=== PATIENT | female | born 1995 | race Asian ===

== ENCOUNTER 2020-07-08 13:53 | Inpatient (IN) ==
[2020-07-08] MEDS ORDERED: SODIUM CHLORIDE 0.9% 1000ML 1,000 ML IV STA (16:38)
[2020-07-08] MEDS ORDERED: ONDANSETRON INJ 2 MG/ML 2 ML VIAL IV STA (16:38)
[2020-07-08] MEDS ORDERED: MoRPHine SULFATE 4 MG/ML 1 ML CARP\\VIAL IV STA (16:38)
--- NOTE | 2020-07-08 16:45 | Emergency Department Note ---
History of Present Illness General Chief complaint: Abdominal Pain Stated complaint: ABD PAIN, VOMITING, BACK PAIN Time Seen by Provider: 07/08/20 16:20 History of Present Illness Maximum Pain Intensity: 5 25-year-old female who presents to emergency department with complaint of upper abdominal pain, nausea, vomiting and central back pain. The patient reports that she developed nausea, vomiting and loss of appetite last evening. When she woke up this morning, the pain was much worse. She reports that the pain is pretty constant with occasional sharp jabs of pain. She reports that the pain is worsened with deep breathing. She denies any pain radiating into the lower abdomen. Last menstruation was 1 month ago. She denies risk for . She has not noticed any increased urinary frequency, urgency or dysuria. She denies recent constipation or diarrhea. The patient denies any alleviating factors for the pain, and has taken ibuprofen without relief. She denies any significant caffeine, alcohol or NSAIDs use. She currently rates her discomfort a 5 out of 10. Home Medications Medication Instructions Recorded Confirmed Type No Known Home Medications 07/08/20 07/08/20 History Allergies Allergy/AdvReac Type Severity Reaction Status Date / Time No Known Allergies Allergy Unverified 07/08/20 16:31 Past Med/Surg History Medical History No pertinent past medical history Surgical History No pertinent past surgical history Social History Smoking Status: Never smoker Preferred Language: [place] marital status: Single current occupational status: student Feels Safe at Home: Yes Review of Systems 10 system review was performed and was negative except for pertinent positives and negatives as indicated in history of present illness Physical Exam Vital Signs Vital Signs - 24 hr 07/08/20 13:54 07/08/20 16:51 07/08/20 17:00 Temperature 35.7 C L Temperature Source Temporal Artery Scan Pulse Rate 87 60 Pulse Rate from SpO2 Sensor 61 Respiratory Rate 18 12 Blood Pressure 126/73 123/76 Blood Pressure Mean 90 91 Pulse Oximetry 97 99 Oxygen Delivery Method Room Air Room Air Sepsis Recent Fever Within 48 Hours No Sepsis New/Unexplained Change in Mental Status N/A Sepsis Action Taken by Nursing No Action Required 07/08/20 17:13 07/08/20 17:30 07/08/20 18:00 Temperature Temperature Source Pulse Rate 55 L 60 64 Pulse Rate from SpO2 Sensor 56 L 63 64 Respiratory Rate 14 14 14 Blood Pressure 126/80 120/81 Blood Pressure Mean 95 94 Pulse Oximetry 98 99 98 Oxygen Delivery Method Sepsis Recent Fever Within 48 Hours Sepsis New/Unexplained Change in Mental Status Sepsis Action Taken by Nursing 07/08/20 18:30 07/08/20 19:00 07/08/20 19:30 Temperature Temperature Source Pulse Rate 60 68 Pulse Rate from SpO2 Sensor 61 68 67 Respiratory Rate 16 14 Blood Pressure 121/77 138/82 114/78 Blood Pressure Mean 91 100 90 Pulse Oximetry 98 98 99 Oxygen Delivery Method Room Air Sepsis Recent Fever Within 48 Hours Sepsis New/Unexplained Change in Mental Status Sepsis Action Taken by Nursing 07/08/20 19:43 07/08/20 20:00 07/08/20 20:30 Temperature Temperature Source Pulse Rate 68 66 Pulse Rate from SpO2 Sensor 75 66 64 Respiratory Rate 14 14 Blood Pressure 135/95 138/95 133/87 Blood Pressure Mean 108 109 102 Pulse Oximetry 99 98 98 Oxygen Delivery Method Room Air Room Air Room Air Sepsis Recent Fever Within 48 Hours Sepsis New/Unexplained Change in Mental Status Sepsis Action Taken by Nursing CONSTITUTIONAL: Healthy and well nourished. Patient appears in mild to moderate discomfort. HEENT: Normocephalic, atraumatic. No scleral icterus or conjunctival injection/pallor. Ears and nares are clear. No tonsillar hypertrophy, exudates or postnasal drip. NECK: Full active range of motion without discomfort. LYMPHATICS: No cervical chain adenopathy. RESPIRATORY: Clear to auscultation bilaterally with no wheezing, crackles, rhonchi or stridor. The breathing worsens the patient's discomfort. CARDIOVASCULAR: Regular rate and rhythm with no murmurs, rubs or gallops. GASTROINTESTINAL: Bowel sounds present in all quadrants. Patient has generalized upper abdominal tenderness to palpation without rigidity, guarding or rebound. Negative CVA tenderness. Negative Adams sign. MUSCULOSKELETAL: Full range of motion of all joints without discomfort. INTEGUMENTARY: No rash or other significant dermatologic conditions noted. HEMATOLOGIC: No ecchymosis or petechiae. PSYCHIATRIC: Flat affect. NEUROLOGIC: No focal neurologic deficits noted. Course Course Patient history and physical exam were performed. Nurses notes were reviewed. Vital signs were reviewed and were normal. I did review prior medical records, showing that the patient has been seen here multiple times in the past for middl e thoracic pain. Upon further questioning, the patient reports that she does occasionally see a chiropractor and physical therapist with relief of back symptoms. She reports that this pain feels different and that it involves the abdomen. IV access was established, and labs were drawn. The patient was hydrated with a liter of normal saline, and administered IV morphine and Zofran for pain and nausea. An ECG was performed and was normal. The patient was placed on monitoring tech while in the emergency department. A portable chest x-ray was performed and was normal. Review of labs show significantly elevated LFTs, alkaline phosphatase, total and direct bilirubin. Urinalysis also is suggestive of infection. Patient also has an elevated D-dimer. CBC is otherwise unremarkable. CT with IV contrast of the abdomen and pelvis, as well as a chest CT angiography was performed, to show no evidence for pulmonary emboli. An acute cholecystitis is noted without any other acute intra-abdominal etiologies. Findings were discussed with Dr. Dumont, ED attending physician, who recommended surgical consultation. The case was then discussed with Pedro Silva PA-C with Dr. Jimenez, general surgeon reimbursement liaison. Mr. Silva recommended hospitalist admission for GI consultation and probable MRCP studies. The case was then further discussed with Leslye Blanchard MD, [facility] Hospitalist. Please see hospitalist, gastroenterology and surgery service dictations for further treatment and final disposition. Administered Medications Discontinued Medications Sodium Chloride (Nss 1000ml) 1,000 mls @ 999 mls/hr IV .Q1H1M STA Stop: 07/08/20 17:38 Last Infusion: 07/08/20 17:57 Dose: 0 mls/hr Documented by: [id number] Admin: 07/08/20 16:45 Dose: 999 mls/hr Documented by: [id number] Famotidine (Pepcid 20mg Iv Push) 20 mg in 5 mls @ 2.5 mls/min IV NOW STA Stop: 07/08/20 16:49 Last Admin: 07/08/20 18:00 Dose: 2.5 mls/min Documented by: [id number] Ampicillin Sodium/Sulbactam Sodium 3,000 mg/ Sodium Chloride 108 mls @ 200 mls/hr IV NOW STA; Protocol Stop: 07/08/20 21:19 Last Admin: 07/08/20 21:13 Dose: 200 mls/hr Documented by: [id number] Ioversol (Optiray 320 125ml) 119 ml IV ONCE ONE Stop: 07/08/20 19:14 Last Admin: 07/08/20 19:14 Dose: 119 ml Documented by: [id number] Morphine Sulfate (Morphine Sulfate 4 Mg/Ml 1 Ml Carp\Vial) 4 mg IV NOW STA Stop: 07/08/20 16:39 Last Admin: 07/08/20 16:45 Dose: 4 mg Documented by: [id number] Morphine Sulfate (Morphine Sulfate 4 Mg/Ml 1 Ml Carp\Vial) 4 mg IV Q30M PRN PRN Reason: Pain Stop: 07/22/20 20:45 Last Admin: 07/08/20 20:52 Dose: 4 mg Documented by: [id number] Ondansetron HCl (Ondansetron Inj 2 Mg/Ml 2 Ml Vial) 4 mg IV NOW STA Stop: 07/08/20 16:39 Last Admin: 07/08/20 16:45 Dose: 4 mg Documented by: [id number] Medical Decision Making Medical Records Attestation: I reviewed the patient's medical records. Home Medications Current Medication List: was personally reviewed by me Laboratory Data Attestation: I reviewed the patient's lab results. Result diagrams: 07/08/20 17:37 07/08/20 17:37 Lab Results 07/08/20 07/08/20 07/08/20 Range/Units 16:25 16:25 17:37 WBC 7.92 (4.8-10.8) K/uL RBC 5.18 (4.2-5.4) M/uL Hgb 14.1 (12.0-16.0) g/dL Hct 41.5 (37-47) % MCV 80.1 (80-100) fL MCH 27.2 (25-34) pg MCHC 34.0 (32-36) g/dL RDW Std Deviation 37.9 (36.4-46.3) fL RDW Coeff of Joycelyn 12.9 (11.5-14.5) % Plt Count 319 (130-400) K/uL MPV 9.9 (7.4-10.4) fL Immature Gran % (Auto) 0.1 % Neut % (Auto) 86.0 % Lymph % (Auto) 9.3 % [place] % (Auto) 4.5 % Eos % (Auto) 0.0 % Baso % (Auto) 0.1 % Neut # (Auto) 6.80 H (1.4-6.5) K/uL Lymph # (Auto) 0.74 L (1.2-3.4) K/uL [place] # (Auto) 0.36 (0.11-0.59) K/uL Eos # (Auto) 0.00 (0-0.5) K/uL Baso # (Auto) 0.01 (0-0.2) K/uL Immature Gran # (Auto) 0.01 (0.00-0.02) K/uL PT (9.0-12.0) Seconds INR (0.9-1.1) D-Dimer (0-500) ug/L FEU Sodium (136-145) mmol/L Potassium (3.5-5.1) mmol/L Chloride (98-107) mmol/L Carbon Dioxide (21-32) mmol/L Anion Gap (3-11) BUN (7-18) mg/dl Creatinine (0.6-1.2) mg/dl Est Cr Clr Drug Dosing ml/min Est GFR ( Amer) Est GFR (Non-Af Amer) BUN/Creatinine Ratio (10-20) Glucose (70-99) mg/dl Calcium (8.5-10.1) mg/dl Total Bilirubin (0.2-1) mg/dl Direct Bilirubin (0-0.2) mg/dl AST (15-37) U/L ALT (12-78) U/L Alkaline Phosphatase (45-117) U/L Troponin I (0-0.045) ng/ml Total Protein (6.4-8.2) gm/dl Albumin (3.4-5.0) gm/dl Globulin (2.5-4.0) gm/dl Albumin/Globulin Ratio (0.9-2) Lipase (73-393) U/L Urine Color Dark Yellow Urine Appearance Cloudy A (Clear) Urine pH 7.0 (4.5-7.5) Ur Specific [place] 1.026 (1.000-1.030) Urine Protein 1+ H (Negative) Urine Glucose (UA) Negative (Negative) Urine Ketones 4+ H (Negative) Urine Blood Negative (Negative) Urine Nitrite Positive A (Negative) Urine Bilirubin 2+ H (Negative) Urine Urobilinogen Negative (Negative) Ur Leukocyte Esterase 1+ H (Negative) Urine WBC (Auto) 1-5 (0-5) /hpf Urine RBC (Auto) 5-10 H (0-4) /hpf U Hyaline Cast (Auto) 1-5 (0-5) /lpf U Epithel Cells (Auto) >30 H (0-5) /lpf Urine Bacteria (Auto) Negative (Negative) Urine Mucus Present A (None Prsent) Urine Yeast Not Reportable POC Ur Test NEG (NEG) COVID-19 Eval Order SARS-CoV-2 (PCR) (Negative) Monoscreen (Negative) Influenza Type A (PCR) (Neg) Influenza Type B (PCR) (Neg) RSV (RT-PCR) (Neg) 07/08/20 07/08/20 07/08/20 Range/Units 17:37 17:37 17:48 WBC (4.8-10.8) K/uL RBC (4.2-5.4) M/uL Hgb (12.0-16.0) g/dL Hct (37-47) % MCV (80-100) fL MCH (25-34) pg MCHC (32-36) g/dL RDW Std Deviation (36.4-46.3) fL RDW Coeff of Joycelyn (11.5-14.5) % Plt Count (130-400) K/uL MPV (7.4-10.4) fL Immature Gran % (Auto) % Neut % (Auto) % Lymph % (Auto) % [place] % (Auto) % Eos % (Auto) % Baso % (Auto) % Neut # (Auto) (1.4-6.5) K/uL Lymph # (Auto) (1.2-3.4) K/uL [place] # (Auto) (0.11-0.59) K/uL Eos # (Auto) (0-0.5) K/uL Baso # (Auto) (0-0.2) K/uL Immature Gran # (Auto) (0.00-0.02) K/uL PT 10.5 (9.0-12.0) Seconds INR 1.0 (0.9-1.1) D-Dimer 1740 H* (0-500) ug/L FEU Sodium 137 (136-145) mmol/L Potassium 3.9 (3.5-5.1) mmol/L Chloride 106 (98-107) mmol/L Carbon Dioxide 23 (21-32) mmol/L Anion Gap 8.0 (3-11) BUN 7 (7-18) mg/dl Creatinine 0.69 (0.6-1.2) mg/dl Est Cr Clr Drug Dosing 118.3 ml/min Est GFR ( Amer) 140.2 Est GFR (Non-Af Amer) 121.0 BUN/Creatinine Ratio 9.4 L (10-20) Glucose 114 H (70-99) mg/dl Calcium 8.8 (8.5-10.1) mg/dl Total Bilirubin 3.7 H (0.2-1) mg/dl Direct Bilirubin 2.8 H (0-0.2) mg/dl AST 1158 H (15-37) U/L ALT 1128 H (12-78) U/L Alkaline Phosphatase 211 H (45-117) U/L Troponin I < 0.015 (0-0.045) ng/ml Total Protein 7.9 (6.4-8.2) gm/dl Albumin 4.0 (3.4-5.0) gm/dl Globulin 3.9 (2.5-4.0) gm/dl Albumin/Globulin Ratio 1.0 (0.9-2) Lipase 138 (73-393) U/L Urine Color Urine Appearance (Clear) Urine pH (4.5-7.5) Ur Specific [place] (1.000-1.030) Urine Protein (Negative) Urine Glucose (UA) (Negative) Urine Ketones (Negative) Urine Blood (Negative) Urine Nitrite (Negative) Urine Bilirubin (Negative) Urine Urobilinogen (Negative) Ur Leukocyte Esterase (Negative) Urine WBC (Auto) (0-5) /hpf Urine RBC (Auto) (0-4) /hpf U Hyaline Cast (Auto) (0-5) /lpf U Epithel Cells (Auto) (0-5) /lpf Urine Bacteria (Auto) (Negative) Urine Mucus (None Prsent) Urine Yeast POC Ur Test (NEG) COVID-19 Eval Order SARS-CoV-2 (PCR) (Negative) Monoscreen Negative (Negative) Influenza Type A (PCR) (Neg) Influenza Type B (PCR) (Neg) RSV (RT-PCR) (Neg) 07/08/20 07/08/20 Range/Units 19:45 19:45 WBC (4.8-10.8) K/uL RBC (4.2-5.4) M/uL Hgb (12.0-16.0) g/dL Hct (37-47) % MCV (80-100) fL MCH (25-34) pg MCHC (32-36) g/dL RDW Std Deviation (36.4-46.3) fL RDW Coeff of Joycelyn (11.5-14.5) % Plt Count (130-400) K/uL MPV (7.4-10.4) fL Immature Gran % (Auto) % Neut % (Auto) % Lymph % (Auto) % [place] % (Auto) % Eos % (Auto) % Baso % (Auto) % Neut # (Auto) (1.4-6.5) K/uL Lymph # (Auto) (1.2-3.4) K/uL [place] # (Auto) (0.11-0.59) K/uL Eos # (Auto) (0-0.5) K/uL Baso # (Auto) (0-0.2) K/uL Immature Gran # (Auto) (0.00-0.02) K/uL PT (9.0-12.0) Seconds INR (0.9-1.1) D-Dimer (0-500) ug/L FEU Sodium (136-145) mmol/L Potassium (3.5-5.1) mmol/L Chloride (98-107) mmol/L Carbon Dioxide (21-32) mmol/L Anion Gap (3-11) BUN (7-18) mg/dl Creatinine (0.6-1.2) mg/dl Est Cr Clr Drug Dosing ml/min Est GFR ( Amer) Est GFR (Non-Af Amer) BUN/Creatinine Ratio (10-20) Glucose (70-99) mg/dl Calcium (8.5-10.1) mg/dl Total Bilirubin (0.2-1) mg/dl Direct Bilirubin (0-0.2) mg/dl AST (15-37) U/L ALT (12-78) U/L Alkaline Phosphatase (45-117) U/L Troponin I (0-0.045) ng/ml Total Protein (6.4-8.2) gm/dl Albumin (3.4-5.0) gm/dl Globulin (2.5-4.0) gm/dl Albumin/Globulin Ratio (0.9-2) Lipase (73-393) U/L Urine Color Urine Appearance (Clear) Urine pH (4.5-7.5) Ur Specific [place] (1.000-1.030) Urine Protein (Negative) Urine Glucose (UA) (Negative) Urine Ketones (Negative) Urine Blood (Negative) Urine Nitrite (Negative) Urine Bilirubin (Negative) Urine Urobilinogen (Negative) Ur Leukocyte Esterase (Negative) Urine WBC (Auto) (0-5) /hpf Urine RBC (Auto) (0-4) /hpf U Hyaline Cast (Auto) (0-5) /lpf U Epithel Cells (Auto) (0-5) /lpf Urine Bacteria (Auto) (Negative) Urine Mucus (None Prsent) Urine Yeast POC Ur Test (NEG) COVID-19 Eval Order CovFluRsv at [facility] SARS-CoV-2 (PCR) NEGATIVE (Negative) Monoscreen (Negative) Influenza Type A (PCR) Negative (Neg) Influenza Type B (PCR) Negative (Neg) RSV (RT-PCR) Negative (Neg) Imaging Data Attestation: I personally reviewed and interpreted this imaging study as follows: My Impression: My interpretation of portable chest x-ray does not show any consolidations, pneumothorax, cardiac prominence or other acute findings. My interpretation of a CT with IV contrast of the abdomen and pelvis shows evidence for acute cholecystitis. My interpretation of chest CT angiography does not show obvious evidence for pulmonary emboli. Radiologist reports were reviewed. Radiologist's Impression: SINGLE VIEW CHEST CLINICAL HISTORY: Epigastric abdominal pain. FINDINGS: An AP, portable, upright chest radiograph is obtained. No prior studies are available for comparison at the time of dictation. The cardiomediastinal silhouette is unremarkable. The lungs and pleural spaces are clear. No pneumothorax is seen. The bony thorax is grossly intact. IMPRESSION: No active disease in the chest. CT ANGIOGRAM OF THE CHEST; CT SCAN OF THE ABDOMEN AND PELVIS WITH IV CONTRAST CLINICAL HISTORY: Atypical chest pain. Generalized abdominal pain. Elevated d- dimer. COMPARISON STUDY: Chest x-ray dated 07/08/2020. Pelvic ultrasound dated 10/23/2019. Thoracic spine CT dated 01/28/2020. TECHNIQUE: Following the IV administration of 119 of Optiray 320, CT angiogram of the chest is performed from the upper abdomen to the thoracic inlet utilizing the pulmonary embolus protocol. Images are reviewed in the axial, sagittal, coronal planes. 3-D MIPS images are created and assessed. Subsequently, CT scan of the abdomen and pelvis was performed from the lung bases to the proximal femora. Images are reviewed in the axial, sagittal, and coronal planes. IV contrast was administered without complication. A dose lowering technique was utilized adhering to the principles of ALARA. CT DOSE: 767.73 mGy.cm FINDINGS: CHEST: Thyroid: Imaged portions of the thyroid gland are normal in size and attenuation. Thoracic aorta: The thoracic aorta is normal in caliber and demonstrates standard 3-vessel arch anatomy. No dissection is seen. Pulmonary vasculature: The pulmonary trunk is normal in caliber. There are no filling defects identified in the main, lobar, or segmental pulmonary arteries to indicate pulmonary embolus. Heart: The heart is normal in size and configuration, and without pericardial effusion. Lungs and pleural spaces: There is no airspace consolidation typical for pn [place]. Trace pleural effusions are noted. The trachea and central airways are clear. Mediastinum: There is no mediastinal lymphadenopathy. Nisha: Clear. Axillae: There is no axillary lymphadenopathy. Bony thorax: No lytic or blastic lesions are identified. ABDOMEN AND PELVIS: Liver: The contrast-enhanced liver is normal in size, contour, and attenuation. There is mild intrahepatic biliary ductal dilatation. The hepatic veins and portal veins are patent. Gallbladder: The gallbladder is distended. Small calcified gallstones are noted. The gallbladder wall is thickened and there is pericholecystic inflammation. Spleen: Normal in size and attenuation. Pancreas: Unremarkable. Adrenal glands: Unremarkable. Kidneys: The contrast enhanced kidneys are normal in size and without hydrone phrosis. The kidneys enhance and excrete symmetrically. Abdominal vasculature: The abdominal aorta is normal in course and caliber. Bowel: The small bowel and colon are normal in course and caliber. The appendix is well-visualized and normal. Peritoneum: There is no intraperitoneal free air or abdominal ascites. There is a small fat-containing umbilical hernia. Lymphadenopathy: None. Pelvic viscera: The bladder, uterus, and adnexa are normal as visualized noting bilateral ovarian follicles. Skeletal structures: No lytic or blastic lesions are seen. IMPRESSION: 1. There is no evidence of pulmonary embolus in the main, lobar, or segmental pulmonary arteries. 2. There is no airspace consolidation typical for pneumonia. 3. Cholelithiasis with evidence of acute cholecystitis. 4. Trace pleural effusions. 5. There is mild intrahepatic biliary ductal dilatation. 6. Additional findings as above. CT ANGIOGRAM OF THE CHEST; CT SCAN OF THE ABDOMEN AND PELVIS WITH IV CONTRAST CLINICAL HISTORY: Atypical chest pain. Generalized abdominal pain. Elevated d- dimer. COMPARISON STUDY: Chest x-ray dated 07/08/2020. Pelvic ultrasound dated 10/23/2019. Thoracic spine CT dated 01/28/2020. TECHNIQUE: Following the IV administration of 119 of Optiray 320, CT angiogram of the chest is performed from the upper abdomen to the thoracic inlet utilizing the pulmonary embolus protocol. Images are reviewed in the axial, sagittal, coronal planes. 3-D MIPS images are created and assessed. Subsequently, CT scan of the abdomen and pelvis was performed from the lung bases to the proximal femora. Images are reviewed in the axial, sagittal, and coronal planes. IV contrast was administered without complication. A dose lowering technique was utilized adhering to the principles of ALARA. CT DOSE: 767.73 mGy.cm FINDINGS: CHEST: Thyroid: Imaged portions of the thyroid gland are normal in size and attenuation. Thoracic aorta: The thoracic aorta is normal in caliber and demonstrates standard 3-vessel arch anatomy. No dissection is seen. Pulmonary vasculature: The pulmonary trunk is normal in caliber. There are no filling defects identified in the main, lobar, or segmental pulmonary arteries to indicate pulmonary embolus. Heart: The heart is normal in size and configuration, and without pericardial effusion. Lungs and pleural spaces: There is no airspace consolidation typical for pneumonia. Trace pleural effusions are noted. The trachea and central airways are clear. Mediastinum: There is no mediastinal lymphadenopathy. Nisha: Clear. Axillae: There is no axillary lymphadenopathy. Bony thorax: No lytic or blastic lesions are identified. ABDOMEN AND PELVIS: Liver: The contrast-enhanced liver is normal in size, contour, and attenuation. There is mild intrahepatic biliary ductal dilatation. The hepatic veins and portal veins are patent. Gallbladder: The gallbladder is distended. Small calcified gallstones are noted. The gallbladder wall is thickened and there is pericholecystic inflammation. Spleen: Normal in size and attenuation. Pancreas: Unremarkable. Adrenal glands: Unremarkable. Kidneys: The contrast enhanced kidneys are normal in size and without hydronephrosis. The kidneys enhance and excrete symmetrically. Abdominal vasculature: The abdominal aorta is normal in course and caliber. Bowel: The small bowel and colon are normal in course and caliber. The appendix is well-visualized and normal. Peritoneum: There is no intraperitoneal free air or abdominal ascites. There is a small fat-containing umbilical hernia. Lymphadenopathy: None. Pelvic viscera: The bladder, uterus, and adnexa are normal as visualized noting bilateral ovarian follicles. Skeletal structures: No lytic or blastic lesions are seen. IMPRESSION: 1. There is no evidence of pulmonary embolus in the main, lobar, or segmental pulmonary arteries. 2. There is no airspace consolidation typical for pneumonia. 3. Cholelithiasis with evidence of acute cholecystitis. 4. Trace pleural effusions. 5. There is mild intrahepatic biliary ductal dilatation. 6. Additional findings as above. ECG Data Indication: + abdominal pain, + nausea and + vomiting Rhythm: + sinus with SA ECG Intervals/blocks: + Normal QRS, + Normal QT, + Normal AK and + Normal QT-c ECG [place]: + Normal ECG ST segments: + Normal ST segments Comparison ECG Date: no prior available Blood Pressure Blood Pressure Findings: Normal blood pressure MDM Narrative Cardiac monitoring: An order was placed for continuous cardiac monitoring. The monitor shows a rate of 61 bpm with a sinus rhythm with sinus arrhythmia. security monitor history was reviewed throughout the evaluation, and no dysrhythmias were noted. Patient presents to the emergency department with complaint of upper abdominal pain, nausea and vomiting. It is also noted that the patient has been dealing with midthoracic back pain for approximately 6 months. I wonder if the patient was actually suffering from biliary colic as a source for her back pain. Work- up today does show evidence for acute cholecystitis on CT imaging. Patient will likely require GI consultation prior to surgical laparoscopic cholecystectomy. Patient has significantly elevated liver transaminases, alkaline phosphatase, direct and total bilirubin levels. Urinalysis is also concerning for possible UTI, however the patient denies any recent urinary symptoms. Laboratory studies are not suggestive of acute kidney injury. The patient is afebrile and has no leukocytosis to suggest overwhelming infection. D-dimer is elevated, however chest CT angiography does not show evidence for pulmonary emboli. ECG and troponin were also normal, therefore I do not suspect major cardiac event. Patient has normal HEART and PERC scores. Impression & Plan Acute calculous cholecystitis, Urinary tract infection Discharge Plan Visit Data Chief Complaint: Abdominal Pain Stated Complaint: ABD PAIN, VOMITING, BACK PAIN ED Provider: Gabriel Dumont ED Midlevel Provider: Ad Fair Discharge Problem: Acute calculous cholecystitis, Urinary tract infection Patient Disposition: Admitted As Inpatient Discharge Instructions Interventions: ED Discharge Assessment Last Done: 07/08/20 21:35 Discharge Problem: Urinary tract infection Qualifiers: Urinary tract infection type: acute cystitis Hematuria presence: without hematu shara Qualified Code(s): N30.00 - Acute cystitis without hematuria
[2020-07-08] MEDS ORDERED: FAMOTIDINE 20MG IV PUSH 20 MG/5 ML SYR IV STA (16:48)
[2020-07-08 16:55] LABS: Appearance Urine Cloudy (Clear); Bacteria Urine Automated Negative (Negative); Blood Urine Negative (Negative); Color Urine Dark Yellow; Epithelial Cell Urine Auto >30 /lpf (0-5); Glucose Urine UA Negative (Negative); Ketones Urine 4+ (Negative); Leukocyte Esterase Urine 1+ (Negative); Nitrite Urine Positive (Negative); Protein Urine 1+ (Negative); Specific Gravity Urine 1.026 (1.000-1.030); Urobilinogen Urine Negative (Negative)
--- NOTE | 2020-07-08 16:56 | XRay Report ---
SINGLE VIEW CHEST CLINICAL HISTORY: Epigastric abdominal pain. FINDINGS: An AP, portable, upright chest radiograph is obtained. No prior studies are available for c omparison at the time of dictation. The cardiomediastinal silhouette is unremarkable. The lungs and pleural spaces are clear. No pneumothorax is seen. The bony thorax is grossly intact. IMPRESSION: No active disease in the chest. ACT 112: Negative or not required by law. Electronically signed by: Richard Barney M.D. 07/08/2020 4:54 PM
[2020-07-08 17:05] LABS: Bilirubin Urine 2+ (Negative)
[2020-07-08 17:46] LABS: Mucus Urine Present (None Prsent)
[2020-07-08 17:57] LABS: Basophils # (auto) 0.01 K/uL (0-0.2); Basophils % (auto) 0.1 %; Hematocrit (blood only) 41.5 % (37-47); Hemoglobin 14.1 g/dL (12.0-16.0); Immature Granulocytes # (auto) 0.01 K/uL (0.00-0.02); Immature Granulocytes % (auto) 0.1 %; Lymphocytes # (auto) 0.74 K/uL (1.2-3.4); Lymphocytes % (auto) 9.3 %; Mean Corpuscular Hemoglobin 27.2 pg (25-34); Mean Corpuscular Volume 80.1 fL (80-100); Mean Platelet Volume 9.9 fL (7.4-10.4); Monocytes # (auto) 0.36 K/uL (0.11-0.59); Monocytes % (auto) 4.5 %; Platelet Count 319 K/uL (130-400); RDW Coefficient of Variation 12.9 % (11.5-14.5); RDW Standard Deviation 37.9 fL (36.4-46.3); Red Blood Count 5.18 M/uL (4.2-5.4); White Blood Count 7.92 K/uL (4.8-10.8)
[2020-07-08 18:07] LABS: Prothrombin Time 10.5 Seconds (9.0-12.0)
[2020-07-08 18:13] LABS: BUN Creatinine Ratio 9.4 (10-20); Blood Urea Nitrogen 7 mg/dl (7-18); Calcium 8.8 mg/dl (8.5-10.1); Carbon Dioxide 23 mmol/L (21-32); Chloride 106 mmol/L (98-107); Creatinine Clr Calc Pharmacy 118.3 ml/min; Est GFR (African American) 140.2; Glucose 114 mg/dl (70-99); Lipase 138 U/L (73-393); Potassium 3.9 mmol/L (3.5-5.1); Sodium 137 mmol/L (136-145)
[2020-07-08 18:16] LABS: D Dimer 1740 ug/L FEU (0-500)
[2020-07-08 18:25] LABS: Alanine Aminotransferase 1128 U/L (12-78); Alkaline Phosphatase 211 U/L (45-117); Aspartate Aminotransferase 1158 U/L (15-37); Bilirubin,Total 3.7 mg/dl (0.2-1); Globulin 3.9 gm/dl (2.5-4.0); Total Protein 7.9 gm/dl (6.4-8.2); Troponin I < 0.015 ng/ml (0-0.045)
[2020-07-08] MEDS ORDERED: OPTIRAY 320 125ml IV ONE (19:13)
[2020-07-08 19:14] LABS: Bilirubin Direct 2.8 mg/dl (0-0.2)
--- NOTE | 2020-07-08 19:32 | CT Scan Report ---
CT ANGIOGRAM OF THE CHEST; CT SCAN OF THE ABDOMEN AND PELVIS WITH IV CONTRAST CLINICAL HISTORY: Atypical chest pain. Generalized abdominal pain. Elevated d-dimer. COMPARISON STUDY: Chest x-ray dated 07/08/2020. Pelvic ultrasound dated 10/23/2019. Thoracic spine CT dated 01/28/2020. TECHNIQUE: Following the IV administration of 119 of Optiray 320, CT angiogram of the chest is perfor med from the upper abdomen to the thoracic inlet utilizing the pulmonary embolus protocol. Images are reviewed in the axial, sagittal, coronal planes. 3-D MIPS images are created and assessed. Subsequen tly, CT scan of the abdomen and pelvis was performed from the lung bases to the proximal femora. Imag es are reviewed in the axial, sagittal, and coronal planes. IV contrast was administered without comp lication. A dose lowering technique was utilized adhering to the principles of ALARA. CT DOSE: 767.73 mGy.cm FINDINGS: CHEST: Thyroid: Imaged portions of the thyroid gland are normal in size and attenuation. Thoracic aorta: The thoracic aorta is normal in caliber and demonstrates standard 3-vessel arch anato my. No dissection is seen. Pulmonary vasculature: The pulmonary trunk is normal in caliber. There are no filling defects identif ied in the main, lobar, or segmental pulmonary arteries to indicate pulmonary embolus. Heart: The heart is normal in size and configuration, and without pericardial effusion. Lungs and pleural spaces: There is no airspace consolidation typical for pneumonia. Trace pleural eff usions are noted. The trachea and central airways are clear. Mediastinum: There is no mediastinal lymphadenopathy. Nisha: Clear. Axillae: There is no axillary lymphadenopathy. Bony thorax: No lytic or blastic lesions are identified. ABDOMEN AND PELVIS: Liver: The contrast-enhanced liver is normal in size, contour, and attenuation. There is mild intrahe patic biliary ductal dilatation. The hepatic veins and portal veins are patent. Gallbladder: The gallbladder is distended. Small calcified gallstones are noted. The gallbladder wall is thickened and there is pericholecystic inflammation. Spleen: Normal in size and attenuation. Pancreas: Unremarkable. Adrenal glands: Unremarkable. Kidneys: The contrast enhanced kidneys are normal in size and without hydronephrosis. The kidneys enh ance and excrete symmetrically. Abdominal vasculature: The abdominal aorta is normal in course and caliber. Bowel: The small bowel and colon are normal in course and caliber. The appendix is well-visualized a nd normal. Peritoneum: There is no intraperitoneal free air or abdominal ascites. There is a small fat-containin g umbilical hernia. Lymphadenopathy: None. Pelvic viscera: The bladder, uterus, and adnexa are normal as visualized noting bilateral ovarian fol licles. Skeletal structures: No lytic or blastic lesions are seen. IMPRESSION: 1. There is no evidence of pulmonary embolus in the main, lobar, or segmental pulmonary arteries. 2. There is no airspace consolidation typical for pneumonia. 3. Cholelithiasis with evidence of acute cholecystitis. 4. Trace pleural effusions. 5. There is mild intrahepatic biliary ductal dilatation. 6. Additional findings as above. ACT 112: Negative or not required by law. Electronically signed by: Richard Barney M.D. 07/08/2020 7:30 PM
[2020-07-08 20:41] LABS: Influenza A virus by PCR Negative (Neg); Influenza B virus by PCR Negative (Neg); RSV by PCR Negative (Neg); SARS CoV2 RNA(COVID-19) InHosp NEGATIVE (Negative)
[2020-07-08] MEDS ORDERED: MoRPHine SULFATE 4 MG/ML 1 ML CARP\\VIAL IV PRN ×2 (20:46→20:59)
[2020-07-08] MEDS ORDERED: AMPICILLIN/SULBACTAM SOD 3,000 MG in 0.9 % SODIUM CHLORIDE 100 ML IV STA (20:47)
--- NOTE | 2020-07-08 20:47 | Surgery Consultation ---
Date of Consultation July 08, 2020 Assessment & Plan (1) Acute calculous cholecystitis: Patient will be admitted to the hospital. Due to her elevated LFTs she will be admitted to the medical service. We recommend the following: Provide analgesics Provide antiemetics Keep the patient n.p.o. Due to her elevated LFTs perform an MRCP Based on results of MRCP a gastroenterology consultation may be advised -Provide antibiotics It appears that the patient may benefit from a cholecystectomy. The timing of this will be pending results of her MRCP. I have discussed this with the patient and she expressed her understanding. Supervising Physician Co-Signing Physician Notes As per Pedro Silva physician web assistant Patient is comfortable this morning without any major complaints the abdomen is benign She is scheduled for MRCP this morning most likely will need an ERCP We will try to coordinate with gastroenterology to see if the ERCP and laparoscopic cholecystectomy can be done at the same time This was discussed with the patient History of Present Illness Reason for Consultation: Cholecystitis History of Present Illness This is a 25-year-old female who presents to the emergency department as she has had right upper quadrant and epigastric abdominal pain for approximately 1 week. She has had associated nausea vomiting. She notes the pain does radiate somewhat to her back and is precipitated usually between 20 minutes and 1 hour after eating a meal. She does not note any other modifying factors however she does admit that the pain is relieved somewhat when she throws up. She denies any fevers, shakes, chills. She denies any cough or shortness of breath. In the emergency department the patient had labs and imaging which were independently reviewed by myself. Patient had a CT scan of her abdomen as well as chest that showed no evidence of pulmonary emboli. There is no evidence of pneumonia. She was noted to have cholelithiasis with evidence of acute cholecystitis as well as some mild intrahepatic biliary ductal dilatation. Labs included a CBC where her white blood cell count, hemoglobin, and platelet count were all noted to be within normal range. Chemistry profile did reveal her sodium and potassium were normal as were her BUN and creatinine. She was noted to have elevation of her bilirubin with a total bilirubin of 3.7 and a direct bilirubin of 2.8. LFTs were noted to be elevated with an AST and ALT of 1158 and 1128 respectively. Her alkaline phosphatase was 211. Her lipase was not elevated. Urine test was noted to be negative. Covid test was performed and was negative. Patient notes when she is feeling well she does not have any limitations to her activity as she says she can easily walk a mile on a flat surface as well as up and down the steps without difficulty. At the time of my interview she was resting comfortably in bed without shortness of breath. Allergies Allergy/AdvReac Type Severity Reaction Status Date / Time No Known Allergies Allergy Unverified 07/08/20 16:31 Home Medications Medication Instructions Recorded Confirmed Type No Known Home Medications 07/08/20 07/08/20 History Patient History Medical History No pertinent past medical history Surgical History No pertinent past surgical history Social History Smoking Status: Never smoker Second Hand Exposure: No; Do You Dip or Chew Tobacco: No; Tobacco Cessation Education Requested by Patient: No Hx Alcohol Use: No Hx Substance Use: No Preferred Language: Kazakh Communication Ability: Effective Lacemaker Required: No Beliefs That Will Affect Care: None marital status: Single Current Living Situation: Significant Other current occupational status: student Other Information That Helps Us Care for You: No Feels Safe at Home: Yes Safety Concerns: Feels Safe At This Time Assistive Devices: None Review of Systems Constitutional: no fever and no chills Eyes: no diplopia Ear, Nose, Mouth, Throat: no ear pain Respiratory: no cough and no dyspnea Cardiovascular: no chest pain Gastrointestinal: + abdominal pain, + nausea and + vomiting Genitourinary: no dysuria Musculoskeletal: + back pain Integumentary: no rash Neurologic: no localized weakness Physical Exam Constitutional: well developed and well nourished; no acute distress Eyes: + anicteric sclerae; no conjunctival abnormality ENMT: Ears: no hearing impairment No sublingual jaundice Neck: trachea midline Respiratory: normal respiratory effort, lungs clear to auscultation Cardiovascular: Rate/Rhythm: regular rate and regular rhythm Gastrointestinal (Abdomen): Abdomen is soft and nondistended. Bowel sounds are present. There is no rebound tenderness or guarding. Patient did have pain with deep palpation in the right upper quadrant with a positive Adams sign. Musculoskeletal: No calf tenderness Skin: no rashes, warm and dry Neurologic: moves all extremities Psychiatric: A+Ox3, euthymic affect Results & Data ([facility]) Vital Signs (Past 12 Hours) Vital Signs Temp Pulse Resp BP Pulse Ox 07/08/20 20:00 68 14 138/95 98 07/08/20 19:43 135/95 99 07/08/20 19:30 114/78 99 07/08/20 19:00 68 14 138/82 98 07/08/20 18:30 60 16 121/77 98 07/08/20 18:00 64 14 120/81 98 07/08/20 17:30 60 14 126/80 99 07/08/20 17:13 55 L 14 98 07/08/20 17:00 60 12 123/76 99 07/08/20 13:54 35.7 C L 87 18 126/73 97 PG Care Time/CCT Total # of Minutes Spent Total Time Spent with Patient: Total time spent is greater than 50% in coordination of care (as documented) at patient's floor/unit and/or counseling patient: Coding Level of Care Code 50994 Inpt Consult Level 5 Diagnoses Acute calculous cholecystitis K80.00
[2020-07-08] MEDS ORDERED: MoRPHine SULFATE 2 MG/ML CARP IV PRN (20:59)
--- NOTE | 2020-07-08 21:07 | History & Physical Report ---
Date of Service July 08, 2020 Assessment & Plan (1) Acute calculous cholecystitis: Patient is a 25 year old female with no PMHx that presented with 1 day history of upper R abdominal pain and vomiting. Acute Calculous Cholecystitis -Ab/Pelv CT noting distended GB with wall thickening, pericholecystic inflammation ,and small calcified gallstones. -T bili 3.7 and Direct bili 2.8 on admission -Transaminitis AST 1158, ALT 1128, Alk Phos 211 -Will also order for MRCP to r/o obstruction further down in the biliary tree -Gen Surg consulted -GI consulted -Given a dose of Unasyn in the ED, will continue with Zosyn on the floor. -Zofran PRN nausea control -Morphine 2-4mg PRN pain control -NPO in anticipation for surgical intervention. Elevated D-dimer -COVID-19 negative -Chest CTA negative for clot -Likely acute phase reactant secondary to acute infection ?UTI -Urine fairly dirty, though without symptoms of dysuria, frequency, hematuria -Will be covered with Zosyn as above Dispo: Med/Surg for IV antibiotics, pain control, nausea control - anticipate surgical intervention for removal of GB and possible ERCP pending MRCP results. FEN: NPO, LR 125ml/hr x2L DVT: SCD, no chemoprophylaxis in anticipation of surgical intervention Code: Full History of Present Illness Chief Complaint: Abdominal Pain Primary Care Provider: [facility] Patient is a 25 year old female with no past medical history that presents with one day history of abdominal pain, vomiting, and chills. Patient noted that starting last night she was experiencing abdominal pain 6/10 worse in the RUQ. She notes that along with this she was having difficulties keeping foods down and would subsequently vomit after eating. She was having chills without rigors or fevers during this time as well. She has not taken anything for the pain. This is her first time experiencing this type of pain. CT ab/pelv in the ED showed signs concerning for cholecystitis. As her D-Dimer was elevated and she was COVID-19 negative, a chest CTA was also completed which was negative for signs of pulmonary emboli. Currently patient notes that her pain is more manageable after receiving IV morphine and that her nausea is improved with IV Zofran. She otherwise denies fever, chest pain, chest pressure, dizziness, dysuria. Med Hx: None Surg Hx: None Soc Hx: Does not use tobacco, alcohol, or illicit drugs. Allergies Allergy/AdvReac Type Severity Reaction Status Date / Time No Known Allergies Allergy Unverified 07/08/20 16:31 Home Medications Medication Instructions Recorded Confirmed Type No Known Home Medications 07/08/20 07/08/20 History Past Med/Surg History Medical History No pertinent past medical history Surgical History No pertinent past surgical history Social History Smoking Status: Never smoker Second Hand Exposure: No; Do You Dip or Chew Tobacco: No; Tobacco Cessation Education Requested by Patient: No Hx Alcohol Use: No Hx Substance Use: No Preferred Language: Korean Communication Ability: Effective 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: No Beliefs That Will Affect Care: None marital status: Single Current Living Situation: Significant Other current occupational status: student Other Information That Helps Us Care for You: No Feels Safe at Home: Yes Safety Concerns: Feels Safe At This Time Assistive Devices: None Review of Systems Review of Systems: All systems reviewed & are unremarkable except as noted in Subjective Physical Exam Constitutional: WD/WN, vitals as above Eyes: PERRL and EOM intact bilaterally; sclerae not anicteric (mild jaundice ) ENMT: external ear and nose normal, oropharynx normal Respiratory: normal respiratory effort, lungs clear to auscultation Cardiovascular: RRR, no murmur, no edema Gastrointestinal (Abdomen): Inspection/Auscultation: abdomen normal to ins pection and normal bowel sounds; abdomen not distended Percussion/Palpation: + abdomen tender (TTP RUQ, Adams+ ) Musculoskeletal: no cyanosis or clubbing, extremities motor strength 5/5 Skin: no rashes, warm and dry Psychiatric: A+Ox3, euthymic affect Results & Data Results & Data ([facility]) Vital Signs (Past 12 Hours) Vital Signs Temp Pulse Resp BP Pulse Ox 07/08/20 20:00 68 14 138/95 98 07/08/20 19:43 135/95 99 07/08/20 19:30 114/78 99 07/08/20 19:00 68 14 138/82 98 07/08/20 18:30 60 16 121/77 98 07/08/20 18:00 64 14 120/81 98 07/08/20 17:30 60 14 126/80 99 07/08/20 17:13 55 L 14 98 07/08/20 17:00 60 12 123/76 99 07/08/20 13:54 35.7 C L 87 18 126/73 97 Laboratory Results Lab Results 07/08/20 07/08/20 07/08/20 Range/Units 16:25 16:25 17:37 WBC 7.92 (4.8-10.8) K/uL RBC 5.18 (4.2-5.4) M/uL Hgb 14.1 (12.0-16.0) g/dL Hct 41.5 (37-47) % MCV 80.1 (80-100) fL MCH 27.2 (25-34) pg MCHC 34.0 (32-36) g/dL RDW Std Deviation 37.9 (36.4-46.3) fL RDW Coeff of Joycelyn 12.9 (11.5-14.5) % Plt Count 319 (130-400) K/uL MPV 9.9 (7.4-10.4) fL Immature Gran % (Auto) 0.1 % Neut % (Auto) 86.0 % Lymph % (Auto) 9.3 % Liberty % (Auto) 4.5 % Eos % (Auto) 0.0 % Baso % (Auto) 0.1 % Neut # (Auto) 6.80 H (1.4-6.5) K/uL Lymph # (Auto) 0.74 L (1.2-3.4) K/uL Liberty # (Auto) 0.36 (0.11-0.59) K/uL Eos # (Auto) 0.00 (0-0.5) K/uL Baso # (Auto) 0.01 (0-0.2) K/uL Immature Gran # (Auto) 0.01 (0.00-0.02) K/uL PT (9.0-12.0) Seconds INR (0.9-1.1) D-Dimer (0-500) ug/L FEU Sodium (136-145) mmol/L Potassium (3.5-5.1) mmol/L Chloride (98-107) mmol/L Carbon Dioxide (21-32) mmol/L Anion Gap (3-11) BUN (7-18) mg/dl Creatinine (0.6-1.2) mg/dl Est Cr Clr Drug Dosing ml/min Est GFR ( Amer) Est GFR (Non-Af Amer) BUN/Creatinine Ratio (10-20) Glucose (70-99) mg/dl Calcium (8.5-10.1) mg/dl Total Bilirubin (0.2-1) mg/dl Direct Bilirubin (0-0.2) mg/dl AST (15-37) U/L ALT (12-78) U/L Alkaline Phosphatase (45-117) U/L Troponin I (0-0.045) ng/ml Total Protein (6.4-8.2) gm/dl Albumin (3.4-5.0) gm/dl Globulin (2.5-4.0) gm/dl Albumin/Globulin Ratio (0.9-2) Lipase (73-393) U/L Urine Color Dark Yellow Urine Appearance Cloudy A (Clear) Urine pH 7.0 (4.5-7.5) Ur Specific [place] 1.026 (1.000-1.030) Urine Protein 1+ H (Negative) Urine Glucose (UA) Negative (Negative) Urine Ketones 4+ H (Negative) Urine Blood Negative (Negative) Urine Nitrite Positive A (Negative) Urine Bilirubin 2+ H (Negative) Urine Urobilinogen Negative (Negative) Ur Leukocyte Esterase 1+ H (Negative) Urine WBC (Auto) 1-5 (0-5) /hpf Urine RBC (Auto) 5-10 H (0-4) /hpf U Hyaline Cast (Auto) 1-5 (0-5) /lpf U Epithel Cells (Auto) >30 H (0-5) /lpf Urine Bacteria (Auto) Negative (Negative) Urine Mucus Present A (None Prsent) Urine Yeast Not Reportable POC Ur Test NEG (NEG) COVID-19 Eval Order SARS-CoV-2 (PCR) (Negative) Monoscreen (Negative) Influenza Type A (PCR) (Neg) Influenza Type B (PCR) (Neg) RSV (RT-PCR) (Neg) 07/08/20 07/08/20 07/08/20 Range/Units 17:37 17:37 17:48 WBC (4.8-10.8) K/uL RBC (4.2-5.4) M/uL Hgb (12.0-16.0) g/dL Hct (37-47) % MCV (80-100) fL MCH (25-34) pg MCHC (32-36) g/dL RDW Std Deviation (36.4-46.3) fL RDW Coeff of Joycelyn (11.5-14.5) % Plt Count (130-400) K/uL MPV (7.4-10.4) fL Immature Gran % (Auto) % Neut % (Auto) % Lymph % (Auto) % Liberty % (Auto) % Eos % (Auto) % Baso % (Auto) % Neut # (Auto) (1.4-6.5) K/uL Lymph # (Auto) (1.2-3.4) K/uL Liberty # (Auto) (0.11-0.59) K/uL Eos # (Auto) (0-0.5) K/uL Baso # (Auto) (0-0.2) K/uL Immature Gran # (Auto) (0.00-0.02) K/uL PT 10.5 (9.0-12.0) Seconds INR 1.0 (0.9-1.1) D-Dimer 1740 H* (0-500) ug/L FEU Sodium 137 (136-145) mmol/L Potassium 3.9 (3.5-5.1) mmol/L Chloride 106 (98-107) mmol/L Carbon Dioxide 23 (21-32) mmol/L Anion Gap 8.0 (3-11) BUN 7 (7-18) mg/dl Creatinine 0.69 (0.6-1.2) mg/dl Est Cr Clr Drug Dosing 118.3 ml/min Est GFR ( Amer) 140.2 Est GFR (Non-Af Amer) 121.0 BUN/Creatinine Ratio 9.4 L (10-20) Glucose 114 H (70-99) mg/dl Calcium 8.8 (8.5-10.1) mg/dl Total Bilirubin 3.7 H (0.2-1) mg/dl Direct Bilirubin 2.8 H (0-0.2) mg/dl AST 1158 H (15-37) U/L ALT 1128 H (12-78) U/L Alkaline Phosphatase 211 H (45-117) U/L Troponin I < 0.015 (0-0.045) ng/ml Total Protein 7.9 (6.4-8.2) gm/dl Albumin 4.0 (3.4-5.0) gm/dl Globulin 3.9 (2.5-4.0) gm/dl Albumin/Globulin Ratio 1.0 (0.9-2) Lipase 138 (73-393) U/L Urine Color Urine Appearance (Clear) Urine pH (4.5-7.5) Ur Specific [place] (1.000-1.030) Urine Protein (Negative) Urine Glucose (UA) (Negative) Urine Ketones (Negative) Urine Blood (Negative) Urine Nitrite (Negative) Urine Bilirubin (Negative) Urine Urobilinogen (Negative) Ur Leukocyte Esterase (Negative) Urine WBC (Auto) (0-5) /hpf Urine RBC (Auto) (0-4) /hpf U Hyaline Cast (Auto) (0-5) /lpf U Epithel Cells (Auto) (0-5) /lpf Urine Bacteria (Auto) (Negative) Urine Mucus (None Prsent) Urine Yeast POC Ur Test (NEG) COVID-19 Eval Order SARS-CoV-2 (PCR) (Negative) Monoscreen Negative (Negative) Influenza Type A (PCR) (Neg) Influenza Type B (PCR) (Neg) RSV (RT-PCR) (Neg) 07/08/20 07/08/20 Range/Units 19:45 19:45 WBC (4.8-10.8) K/uL RBC (4.2-5.4) M/uL Hgb (12.0-16.0) g/dL Hct (37-47) % MCV (80-100) fL MCH (25-34) pg MCHC (32-36) g/dL RDW Std Deviation (36.4-46.3) fL RDW Coeff of Joycelyn (11.5-14.5) % Plt Count (130-400) K/uL MPV (7.4-10.4) fL Immature Gran % (Auto) % Neut % (Auto) % Lymph % (Auto) % Liberty % (Auto) % Eos % (Auto) % Baso % (Auto) % Neut # (Auto) (1.4-6.5) K/uL Lymph # (Auto) (1.2-3.4) K/uL Liberty # (Auto) (0.11-0.59) K/uL Eos # (Auto) (0-0.5) K/uL Baso # (Auto) (0-0.2) K/uL Immature Gran # (Auto) (0.00-0.02) K/uL PT (9.0-12.0) Seconds INR (0.9-1.1) D-Dimer (0-500) ug/L FEU Sodium (136-145) mmol/L Potassium (3.5-5.1) mmol/L Chloride (98-107) mmol/L Carbon Dioxide (21-32) mmol/L Anion Gap (3-11) BUN (7-18) mg/dl Creatinine (0.6-1.2) mg/dl Est Cr Clr Drug Dosing ml/min Est GFR ( Amer) Est GFR (Non-Af Amer) BUN/Creatinine Ratio (10-20) Glucose (70-99) mg/dl Calcium (8.5-10.1) mg/dl Total Bilirubin (0.2-1) mg/dl Direct Bilirubin (0-0.2) mg/dl AST (15-37) U/L ALT (12-78) U/L Alkaline Phosphatase (45-117) U/L Troponin I (0-0.045) ng/ml Total Protein (6.4-8.2) gm/dl Albumin (3.4-5.0) gm/dl Globulin (2.5-4.0) gm/dl Albumin/Globulin Ratio (0.9-2) Lipase (73-393) U/L Urine Color Urine Appearance (Clear) Urine pH (4.5-7.5) Ur Specific [place] (1.000-1.030) Urine Protein (Negative) Urine Glucose (UA) (Negative) Urine Ketones (Negative) Urine Blood (Negative) Urine Nitrite (Negative) Urine Bilirubin (Negative) Urine Urobilinogen (Negative) Ur Leukocyte Esterase (Negative) Urine WBC (Auto) (0-5) /hpf Urine RBC (Auto) (0-4) /hpf U Hyaline Cast (Auto) (0-5) /lpf U Epithel Cells (Auto) (0-5) /lpf Urine Bacteria (Auto) (Negative) Urine Mucus (None Prsent) Urine Yeast POC Ur Test (NEG) COVID-19 Eval Order CovFluRsv at [facility] SARS-CoV-2 (PCR) NEGATIVE (Negative) Monoscreen (Negative) Influenza Type A (PCR) Negative (Neg) Influenza Type B (PCR) Negative (Neg) RSV (RT-PCR) Negative (Neg) Diagnostic Findings CT ANGIOGRAM OF THE CHEST; CT SCAN OF THE ABDOMEN AND PELVIS WITH IV CONTRAST CLINICAL HISTORY: Atypical chest pain. Generalized abdominal pain. Elevated d- dimer. COMPARISON STUDY: Chest x-ray dated 07/08/2020. Pelvic ultrasound dated 10/23/2019. Thoracic spine CT dated 01/28/2020. TECHNIQUE: Following the IV administration of 119 of Optiray 320, CT angiogram of the chest is performed from the upper abdomen to the thoracic inlet utilizing the pulmonary embolus protocol. Images are reviewed in the axial, sagittal, coronal planes. 3-D MIPS images are created and assessed. Subsequently, CT scan of the abdomen and pelvis was performed from the lung bases to the proximal femora. Images are reviewed in the axial, sagittal, and coronal planes. IV contrast was administered without complication. A dose lowering technique was utilized adhering to the principles of ALARA. CT DOSE: 767.73 mGy.cm FINDINGS: CHEST: Thyroid: Imaged portions of the thyroid gland are normal in size and attenuation. Thoracic aorta: The thoracic aorta is normal in caliber and demonstrates standard 3-vessel arch anatomy. No dissection is seen. Pulmonary vasculature: The pulmonary trunk is normal in caliber. There are no filling defects identified in the main, lobar, or segmental pulmonary arteries to indicate pulmonary embolus. Heart: The heart is normal in size and configuration, and without pericardial effusion. Lungs and pleural spaces: There is no airspace consolidation typical for pneumonia. Trace pleural effusions are noted. The trachea and central airways are clear. Mediastinum: There is no mediastinal lymphadenopathy. Nisha: Clear. Axillae: There is no axillary lymphadenopathy. Bony thorax: No lytic or blastic lesions are identified. ABDOMEN AND PELVIS: Liver: The contrast-enhanced liver is normal in size, contour, and attenuation. There is mild intrahepatic biliary ductal dilatation. The hepatic veins and portal veins are patent. Gallbladder: The gallbladder is distended. Small calcified gallstones are noted. The gallbladder wall is thickened and there is pericholecystic inflammation. Spleen: Normal in size and attenuation. Pancreas: Unremarkable. Adrenal glands: Unremarkable. Kidneys: The contrast enhanced kidneys are normal in size and without hydronephrosis. The kidneys enhance and excrete symmetrically. Abdominal vasculature: The abdominal aorta is normal in course and caliber. Bowel: The small bowel and colon are normal in course and caliber. The appendix is well-visualized and normal. Peritoneum: There is no intraperitoneal free air or abdominal ascites. There is a small fat-containing umbilical hernia. Lymphadenopathy: None. Pelvic viscera: The bladder, uterus, and adnexa are normal as visualized noting bilateral ovarian follicles. Skeletal structures: No lytic or blastic lesions are seen. IMPRESSION: 1. There is no evidence of pulmonary embolus in the main, lobar, or segmental pulmonary arteries. 2. There is no airspace consolidation typical for pneumonia. 3. Cholelithiasis with evidence of acute cholecystitis. 4. Trace pleural effusions. 5. There is mild intrahepatic biliary ductal dilatation. 6. Additional findings as above. ACT 112: Negative or not required by law. Electronically signed by: Richard Barney M.D. 07/08/2020 7:30 PM Dictated: 07/08/201922Transcribed: 07/08/201922 SINGLE VIEW CHEST CLINICAL HISTORY: Epigastric abdominal pain. FINDINGS: An AP, portable, upright chest radiograph is obtained. No prior studies are available for comparison at the time of dictation. The cardiomediastinal silhouette is unremarkable. The lungs and pleural spaces are clear. No pneumothorax is seen. The bony thorax is grossly intact. IMPRESSION: No active disease in the chest. ACT 112: Negative or not required by law. Electronically signed by: Richard Barney M.D. 07/08/2020 4:54 PM Dictated: 07/08/201653Transcribed: 07/08/201653 ECG Additional Comments: EKG wtih NSR at 61, no acute ischemic changes Code Status & VTE Plan VTE Prophylaxis Plan VTE Prophylaxis will be ordered: Yes Supervising Physician Co-Signing Physician Notes Patient seen and examined, chart reviewed, case discussed with Dr. Melvin and I agree with his assessment and plan as documented above. Briefly, patient is a 25yo female with no significant past medical or surgical history presently with one day of RUQ discomfort, fever/chills, nausea and post-prandial vomiting. On exam she is afebrile, HD stable Gen - nontoxic in appearance Skin - warm, dry, no rashes or lesions, no jaundice or icterus HEENT - NC/AT, PERRL, Neck supple, MMM Heart - +S1/S2, regular, no m/r/g Lungs - CTA Abd - +BS, soft, tender in RUQ with voluntary guarding Ext - No edema Labs and images reviewed. Significant for elevated neutrophil count and lymphopenia. Elevated D-dimer. LFTs with mixed pattern - hepatocellular and obstructive. Tbili=3.7, XL=827, IQH=1197, DEE=6218 CT with suggestion for acute cholecystitis Assessment/Plan: -Admit to medical -MRCP -Repeat LFTs in AM -Zosyn -GI and Surgical evaluations appreciated -Remainder of plan as above Resident Activity Tracking Resident Involvement: Resident Care Provided Care Provided: Adult [facility]
[2020-07-08] MEDS ORDERED: ONDANSETRON INJ 2 MG/ML 2 ML VIAL IV PRN (21:49)
[2020-07-08] MEDS ORDERED: PIPERACILL/TAZOBAC CONSULT ACTIVE PRN (21:49)
[2020-07-08] MEDS ORDERED: PIPERACILLIN/TAZOBACTAM 3.375 GM in DEXTROSE 5% 100 ML IV STA (21:53)
[2020-07-08] MEDS: LACTATED RINGER'S 1,000 ML IV SCH (22:36)
--- NOTE | 2020-07-09 04:30 | Billing Data ---
Date of Service July 08, 2020 Coding Level of Care Code 43215 Initial Inpt Care Lvl 2
[2020-07-09] MEDS: PIPERACILLIN/TAZOBACTAM 3.375 GM in DEXTROSE 5% 100 ML IV SCH ×3 (04:34→19:46)
[2020-07-09 06:26] LABS: Hematocrit (blood only) 38.9 % (37-47); Hemoglobin 13.2 g/dL (12.0-16.0); Immature Granulocytes # (auto) 0.03 K/uL (0.00-0.02); Immature Granulocytes % (auto) 0.3 %; Lymphocytes % (auto) 9.1 %; Mean Corpuscular Hemoglobin 27.2 pg (25-34); Mean Corpuscular Hgb Conc 33.9 g/dL (32-36); Mean Corpuscular Volume 80.2 fL (80-100); Monocytes % (auto) 6.4 %; Neutrophils # (auto) 9.27 K/uL (1.4-6.5); Neutrophils % (auto) 84.2 %; Platelet Count 331 K/uL (130-400); RDW Coefficient of Variation 13.1 % (11.5-14.5); RDW Standard Deviation 38.1 fL (36.4-46.3); Red Blood Count 4.85 M/uL (4.2-5.4)
[2020-07-09 06:50] LABS: Albumin Level 3.5 gm/dl (3.4-5.0); BUN Creatinine Ratio 9.1 (10-20); Bilirubin Direct 3.3 mg/dl (0-0.2); Calcium 8.6 mg/dl (8.5-10.1); Creatinine Clr Calc Pharmacy 124.2 ml/min; Est GFR (African American) 142.3; Est GFR (Non-African American) 122.8; Potassium 3.7 mmol/L (3.5-5.1)
[2020-07-09 07:03] LABS: Bilirubin,Total 4.4 mg/dl (0.2-1); Total Protein 7.4 gm/dl (6.4-8.2)
--- NOTE | 2020-07-09 08:48 | Gastrointestinal Consultation ---
Date of Consultation July 09, 2020 Assessment & Plan (1) Acute calculous cholecystitis: The patient presented to the emergency department due to abdominal pain, nausea, vomiting and was found to have acute calculus cholecystitis with elevation of liver function testing. A MRCP is pending. If a CBD stone is identified MRCP, will proceed with ERCP. If no stone identified defer to surgical services for further management. Patient is aware of plan and agreeable at this time. Continue current management, n.p.o., IV fluids, analgesic and nausea medications. We will continue to follow. Case reviewed with Dr. Sanchez as he is all for the GI service today. Please refer to supervising physician addendum for further recommendations. History of Present Illness Attending Physician: Iggy Franco, History of Present Illness The patient is a 25-year-old female with no significant past medical history who presented to the emergency department 07/08/2020 with complaints of upper abdominal pain that wraps into her back, nausea, vomiting. CT abdomen and pelvis noted distended gallbladder with wall thickening, pericholecystic inflammation, and small calcified gallstones with elevation of liver function testing. She was subsequently admitted for further management. GI was consulted due to LFT elevation. On exam/interview today, the patient is lying bed and awakens easily with verbal stimuli. She states that she had right upper quadrant and epigastric abdominal pain prior to arrival in the emergency department for approximately 1 week. She states approximately 24 hours prior to her ED admission the pain worsened and was severe to the point where she was unable to tolerate it. She had onset of nausea and vomiting approximately 24 hours prior to arrival in the emergency department. She denies any family history of gallbladder problems. Her last bowel movement was approximately 2 days ago. She denies any melena or hematochezia. Her last menstrual period was approximately 4 weeks ago in early June. Pain did worsen 20 minutes to 1 hour after eating a meal. Pain is somewhat relieved by throwing up. She denies any current abdominal pain, nausea, vomiting. She believes that she has been vaccinated with hepatitis A and B vaccines. The patient is a lifetime non-smoker. Denies any use of alcohol. Denies use of recreational drugs including marijuana. 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 She anticipates her graduation will be in approximately 2 years. She lives with her boyfriend in an off campus apartment. She is from [place] and has living [facility] for the last 3 years. Allergies Allergy/AdvReac Type Severity Reaction Status Date / Time No Known Allergies Allergy Unverified 07/08/20 16:31 Home Medications Medication Instructions Recorded Confirmed Type No Known Home Medications 07/08/20 07/08/20 History Patient History Medical History No pertinent past medical history Surgical History No pertinent past surgical history Social History Smoking Status: Never smoker Second Hand Exposure: No; Do You Dip or Chew Tobacco: No; Tobacco Cessation Education Requested by Patient: No Hx Alcohol Use: No Hx Substance Use: No Preferred Language: Armenian Communication Ability: Effective 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 Required: No Beliefs That Will Affect Care: None marital status: Single Current Living Situation: Significant Other current occupational status: student Other Information That Helps Us Care for You: No Feels Safe at Home: Yes Safety Concerns: Feels Safe At This Time Assistive Devices: None Review of Systems Review of Systems: All systems reviewed & are unremarkable except as noted in Subjective Physical Exam Constitutional: well developed and well nourished; no acute distress Eyes: + anicteric sclerae; no conjunctival abnormality ENMT: Ears: no hearing impairment No sublingual jaundice Neck: normal visual inspection and trachea midline Respiratory: normal respiratory effort, lungs clear to auscultation Cardiovascular: Rate/Rhythm: regular rate and regular rhythm Gastrointestinal (Abdomen): Inspection/Auscultation: normal bowel sounds; abdomen not distended Percussion/Palpation: abdomen soft; no guarding and abdomen not rigid Patient did have pain with deep palpation in the right upper quadrant with a positive Adams sign. Musculoskeletal: No calf tenderness Skin: no rashes, warm and dry Neurologic: moves all extremities Psychiatric: A+Ox3, euthymic affect Results & Data ([facility]) Vital Signs (Past 12 Hours) Vital Signs Temp Pulse Pulse Resp BP BP Pulse Ox 07/09/20 08:11 37.3 C 78 14 129/84 98 07/08/20 21:52 37.0 C 61 16 126/83 99 07/08/20 21:30 70 16 123/87 97 07/08/20 21:00 65 14 129/87 98 Laboratory Results - last 24 hr 07/08/20 07/08/20 07/08/20 16:25 16:25 17:37 WBC 7.92 RBC 5.18 Hgb 14.1 Hct 41.5 MCV 80.1 MCH 27.2 MCHC 34.0 RDW Std Deviation 37.9 RDW Coeff of Joycelyn 12.9 Plt Count 319 MPV 9.9 Immature Gran % (Auto) 0.1 Neut % (Auto) 86.0 Lymph % (Auto) 9.3 [place] % (Auto) 4.5 Eos % (Auto) 0.0 Baso % (Auto) 0.1 Neut # (Auto) 6.80 H Lymph # (Auto) 0.74 L [place] # (Auto) 0.36 Eos # (Auto) 0.00 Baso # (Auto) 0.01 Immature Gran # (Auto) 0.01 PT INR D-Dimer Sodium Potassium Chloride Carbon Dioxide Anion Gap BUN Creatinine Est Cr Clr Drug Dosing Est GFR ( Amer) Est GFR (Non-Af Amer) BUN/Creatinine Ratio Glucose Calcium Total Bilirubin Direct Bilirubin AST ALT Alkaline Phosphatase Troponin I Total Protein Albumin Globulin Albumin/Globulin Ratio Lipase Urine Color Dark Yellow Urine Appearance Cloudy A Urine pH 7.0 Ur Specific [place] 1.026 Urine Protein 1+ H Urine Glucose (UA) Negative Urine Ketones 4+ H Urine Blood Negative Urine Nitrite Positive A Urine Bilirubin 2+ H Urine Urobilinogen Negative Ur Leukocyte Esterase 1+ H Urine WBC (Auto) 1-5 Urine RBC (Auto) 5-10 H U Hyaline Cast (Auto) 1-5 U Epithel Cells (Auto) >30 H Urine Bacteria (Auto) Negative Urine Mucus Present A Urine Yeast Not Reportable POC Ur Test NEG COVID-19 Eval Order SARS-CoV-2 (PCR) Monoscreen Influenza Type A (PCR) Influenza Type B (PCR) RSV (RT-PCR) 07/08/20 07/08/20 07/08/20 17:37 17:37 17:48 WBC RBC Hgb Hct MCV MCH MCHC RDW Std Deviation RDW Coeff of Joycelyn Plt Count MPV Immature Gran % (Auto) Neut % (Auto) Lymph % (Auto) [place] % (Auto) Eos % (Auto) Baso % (Auto) Neut # (Auto) Lymph # (Auto) [place] # (Auto) Eos # (Auto) Baso # (Auto) Immature Gran # (Auto) PT 10.5 INR 1.0 D-Dimer 1740 H* Sodium 137 Potassium 3.9 Chloride 106 Carbon Dioxide 23 Anion Gap 8.0 BUN 7 Creatinine 0.69 Est Cr Clr Drug Dosing 118.3 Est GFR ( Amer) 140.2 Est GFR (Non-Af Amer) 121.0 BUN/Creatinine Ratio 9.4 L Glucose 114 H Calcium 8.8 Total Bilirubin 3.7 H Direct Bilirubin 2.8 H AST 1158 H ALT 1128 H Alkaline Phosphatase 211 H Troponin I < 0.015 Total Protein 7.9 Albumin 4.0 Globulin 3.9 Albumin/Globulin Ratio 1.0 Lipase 138 Urine Color Urine Appearance Urine pH Ur Specific [place] Urine Protein Urine Glucose (UA) Urine Ketones Urine Blood Urine Nitrite Urine Bilirubin Urine Urobilinogen Ur Leukocyte Esterase Urine WBC (Auto) Urine RBC (Auto) U Hyaline Cast (Auto) U Epithel Cells (Auto) Urine Bacteria (Auto) Urine Mucus Urine Yeast POC Ur Test COVID-19 Eval Order SARS-CoV-2 (PCR) Monoscreen Negative Influenza Type A (PCR) Influenza Type B (PCR) RSV (RT-PCR) 07/08/20 07/08/20 07/09/20 19:45 19:45 05:42 WBC 11.00 H RBC 4.85 Hgb 13.2 Hct 38.9 MCV 80.2 MCH 27.2 MCHC 33.9 RDW Std Deviation 38.1 RDW Coeff of [place] 13.1 Plt Count 331 MPV 10.0 Immature Gran % (Auto) 0.3 Neut % (Auto) 84.2 Lymph % (Auto) 9.1 [place] % (Auto) 6.4 Eos % (Auto) 0.0 Baso % (Auto) 0.0 Neut # (Auto) 9.27 H Lymph # (Auto) 1.00 L [place] # (Auto) 0.70 H Eos # (Auto) 0.00 Baso # (Auto) 0.00 Immature Gran # (Auto) 0.03 H PT INR D-Dimer Sodium Potassium Chloride Carbon Dioxide Anion Gap BUN Creatinine Est Cr Clr Drug Dosing Est GFR ( Amer) Est GFR (Non-Af Amer) BUN/Creatinine Ratio Glucose Calcium Total Bilirubin Direct Bilirubin AST ALT Alkaline Phosphatase Troponin I Total Protein Albumin Globulin Albumin/Globulin Ratio Lipase Urine Color Urine Appearance Urine pH Ur Specific [place] Urine Protein Urine Glucose (UA) Urine Ketones Urine Blood Urine Nitrite Urine Bilirubin Urine Urobilinogen Ur Leukocyte Esterase Urine WBC (Auto) Urine RBC (Auto) U Hyaline Cast (Auto) U Epithel Cells (Auto) Urine Bacteria (Auto) Urine Mucus Urine Yeast POC Ur Test COVID-19 Eval Order CovFluRsv at [facility] SARS-CoV-2 (PCR) NEGATIVE Monoscreen Influenza Type A (PCR) Negative Influenza Type B (PCR) Negative RSV (RT-PCR) Negative 07/09/20 05:42 WBC RBC Hgb Hct MCV MCH MCHC RDW Std Deviation RDW Coeff of Joycelyn Plt Count MPV Immature Gran % (Auto) Neut % (Auto) Lymph % (Auto) [place] % (Auto) Eos % (Auto) Baso % (Auto) Neut # (Auto) Lymph # (Auto) [place] # (Auto) Eos # (Auto) Baso # (Auto) Immature Gran # (Auto) PT INR D-Dimer Sodium 138 Potassium 3.7 Chloride 106 Carbon Dioxide 24 Anion Gap 8.0 BUN 6 L Creatinine 0.66 Est Cr Clr Drug Dosing 124.2 Est GFR ( Amer) 142.3 Est GFR (Non-Af Amer) 122.8 BUN/Creatinine Ratio 9.1 L Glucose 126 H Calcium 8.6 Total Bilirubin 4.4 H Direct Bilirubin 3.3 H AST 1036 H ALT 1425 H Alkaline Phosphatase 245 H Troponin I Total Protein 7.4 Albumin 3.5 Globulin Albumin/Globulin Ratio Lipase Urine Color Urine Appearance Urine pH Ur Specific [place] Urine Protein Urine Glucose (UA) Urine Ketones Urine Blood Urine Nitrite Urine Bilirubin Urine Urobilinogen Ur Leukocyte Esterase Urine WBC (Auto) Urine RBC (Auto) U Hyaline Cast (Auto) U Epithel Cells (Auto) Urine Bacteria (Auto) Urine Mucus Urine Yeast POC Ur Test COVID-19 Eval Order SARS-CoV-2 (PCR) Monoscreen Influenza Type A (PCR) Influenza Type B (PCR) RSV (RT-PCR) 07/08/2020: CT of the abdomen and pelvis with IV contrast demonstrated cholelithiasis with evidence of acute cholecystitis. Mild intrahepatic biliary ductal dilatation. Gallbladder is distended with small calcified gallstones noted. Gallbladder wall is thickened and there is pericholecystic inflammation. Please refer to report for complete findings.
--- NOTE | 2020-07-09 08:58 | Medical Student Progress Note ---
Date of Service July 09, 2020 Assessment & Plan (1) Acute calculous cholecystitis: Patient is a 25 year old female with no PMHx that presented with 1 day history of upper R abdominal pain and vomiting. Acute Calculous Cholecystitis -Ab/Pelv CT noting distended GB with wall thickening, pericholecystic inflammation, and small calcified gallstones -MRCP showed distended GB with stones and choledocholithiasis -T bili 4.4 and Direct bili 3.3 on 07/09 -Transaminitis AST 1036, ALT 1425, Alk Phos 245 -Gen Surg consulted -GI consulted and will perform ERCP to remove stones in CBD -Continue Zosyn -Zofran PRN nausea control -Morphine 2-4mg PRN pain control -NPO in anticipation for surgical intervention Elevated D-dimer -COVID-19 negative -Chest CTA negative for clot -Likely acute phase reactant secondary to acute infection Possible UTI -Urine fairly dirty, though without symptoms of dysuria, frequency, hematuria -Pin-point growth on cx, reincubating -Will be covered with Zosyn as above Back Pain -Chronic mid-upper back pain -Likely MSK in origin -Will continue to monitor and discuss further with the pt after her procedures Dispo: Med/Surg for IV antibiotics, pain control, nausea control - anticipate surgical intervention for removal of GB FEN: NPO, LR 125ml/hr x2L DVT: SCD, no chemoprophylaxis in anticipation of surgical intervention Code: Full Admission and Anticipated Discharge Date Admission Date: July 08, 2020 Supervising Attestation I personally examined the patient and verified all sánchez points of history and exam, discussed case, and agree with decision making with Sofie Garcia for ERCP momentarily. pain and nausea controlled. vitals noted nad heent nc at mmm breathing unlabored no accessory muscles good effort skin no rashes no pallor or icterus cholecystitis and choledocholithiasis -zosyn, ERCP momentarily, anticipate choley soon back pain - probably msk - will get hx better once she is less acute doubt UTI - probably false (+) UA, although on zosyn anyway no clear need for pharmacologic DVT proph unless stay becomes prolonged or pain limits mobility/etc otherwise as above Subjective Linying is feeling better today. She rates her pain a 3/10 and denies any nausea, vomiting, fever, or chills. She continues to have dull pain in her upper abdomen that is worse on the right side, and some mid upper back pain that she describes as feeling like muscular pain. Her pain is constant and doesn't seem to worsen with movement. She notes that her urine is still orange-tinged and denies any frequency, urgency, or dysuria. Review of Systems Review of Systems: All systems reviewed & are unremarkable except as noted in HPI & below Physical Exam Constitutional: WD/WN, vitals as above Respiratory: normal respiratory effort, lungs clear to auscultation Auscultation: no rales, no rhonchi and no wheezes Cardiovascular: Rate/Rhythm: regular rate and regular rhythm Heart Sounds: normal S1 and normal S2; no gallop, no murmur and no cardiac rub Gastrointestinal (Abdomen): Inspection/Auscultation: abdomen normal to inspection and normal bowel sounds; abdomen not distended Percussion/Palpation: + abdomen tender (RUQ and LUQ tenderness, worse on the R) and abdomen soft Skin: no rashes, warm and dry Results & Data ([facility]) Vital Signs (Past 12 Hours) Vital Signs Temp Pulse Pulse Resp BP BP Pulse Ox 07/09/20 08:11 37.3 C 78 14 129/84 98 07/08/20 21:52 37.0 C 61 16 126/83 99 07/08/20 21:30 70 16 123/87 97 07/08/20 21:00 65 14 129/87 98
[2020-07-09] MEDS: LACTATED RINGER'S 1,000 ML IV SCH (10:19)
--- NOTE | 2020-07-09 12:26 | Magnetic Resonance Report ---
MRCP CLINICAL HISTORY: Epigastric abdominal pain. Acute cholecystitis. COMPARISON STUDY: Abdominal CT dated 07/08/2020. TECHNIQUE: MRCP is performed utilizing various T2-weighted sequences in the axial and coronal planes. IV contrast was not administered for this examination. 3-D reformats are created and assessed. FINDINGS: The gallbladder is distended and filled with gallstones. The gallbladder wall is mildly thickened the re is mild pericholecystic stranding and trace fluid. The appearance is consistent with acute cholecy stitis. There is mild intrahepatic biliary ductal dilatation. The common bile duct is dilated measuri ng up to 8 mm in diameter. An 11 mm filling defect within the mid common bile duct best seen on coron al MRCP images #69 is consistent with choledocholithiasis. The distal common bile duct at the head of pancreas is normal in caliber. The pancreatic duct is normal in appearance. The unenhanced liver, spleen, adrenal glands, kidneys, and pancreas are grossly unremarkable. The abd ominal aorta is normal in caliber. There is no bowel obstruction. No abdominal adenopathy is identifi ed. There is no abdominal ascites. Trace pleural effusions are noted. IMPRESSION: 1. Cholelithiasis and choledocholithiasis with intra and extrahepatic biliary ductal dilatation as ab ove. 2. Findings are consistent with acute cholecystitis. 3. Trace pleural effusions. Electronically signed by: Richard Barney M.D. 07/09/2020 12:25 PM
[2020-07-09] MEDS ORDERED: PROCHLORPERAZINE 5 MG in SYRINGE 4 ML IV ONE (12:45)
[2020-07-09] MEDS ORDERED: INDOMETHACIN 50 MG SUPP PR SCH (13:00)
--- NOTE | 2020-07-09 14:21 | Electrocardiogram Report ---
Test Reason : Blood Pressure : / mmHG Vent. Rate : 061 BPM Atrial Rate : 061 BPM P-R Int : 168 ms QRS Dur : 084 ms QT Int : 448 ms P-R-T Axes : 042 071 050 degrees QTc Int : 450 ms Normal sinus rhythm with sinus arrhythmia Normal ECG No previous ECGs available Confirmed by Yimi Batista ([id number]) on 07/09/2020 2:20:49 PM Referred By: REFERRED SELF Confirmed By:Yimi Batista
[2020-07-09] MEDS ORDERED: SODIUM CHLORIDE 0.9% 1000ML 1,000 ML IV SCH (15:15)
--- NOTE | 2020-07-09 15:15 | History & Physical Report ---
Date of Service July 09, 2020 Assessment & Plan Admission and Anticipated Discharge Date Admission Date: July 08, 2020 History of Present Illness Chief Complaint: CBD stone, acute cholecystitis Primary Care Provider: [facility] For ERCP Allergies Allergy/AdvReac Type Severity Reaction Status Date / Time No Known Allergies Allergy Unverified 07/08/20 16:31 Home Medications Medication Instructions Recorded Confirmed Type No Known Home Medications 07/08/20 07/08/20 History Past Med/Surg History Medical History No pertinent past medical history Surgical History No pertinent past surgical history Social History Smoking Status: Never smoker Second Hand Exposure: No; Do You Dip or Chew Tobacco: No; Tobacco Cessation Education Requested by Patient: No Hx Alcohol Use: No Hx Substance Use: No Preferred Language: Scottish Communication Ability: Effective 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: No Beliefs That Will Affect Care: None marital status: Single Current Living Situation: Significant Other current occupational status: student Other Information That Helps Us Care for You: No Feels Safe at Home: Yes Safety Concerns: Feels Safe At This Time Assistive Devices: Glasses Physical Exam Constitutional: well developed and well nourished Respiratory: normal respiratory effort Cardiovascular: Rate/Rhythm: regular rate and regular rhythm Gastrointestinal (Abdomen): Percussion/Palpation: abdomen soft Results & Data ([facility]) Vital Signs (Past 12 Hours) Vital Signs Temp Pulse Resp BP Pulse Ox 07/09/20 14:41 37.1 C 58 L 16 110/72 97 07/09/20 08:11 37.3 C 78 14 129/84 98 Code Status & VTE Plan VTE Prophylaxis Plan VTE Prophylaxis will be ordered: Yes
[2020-07-09] MEDS ORDERED: SUCCINYLCHOLINE CHLORIDE 20 MG/ML 10 ML VIAL IV ONE (16:07)
[2020-07-09] MEDS ORDERED: LIDOCAINE HCL 2% 2 ML VIAL/AMP(20MG/ML) INFIL ONE (16:07)
[2020-07-09] MEDS ORDERED: PROPOFOL IV EMULSION 10 MG/ML 20 ML VIAL IV ONE (16:07)
[2020-07-09] MEDS ORDERED: LARYING-O-JET KIT (LTA) ONE (16:07)
[2020-07-09] MEDS ORDERED: ONDANSETRON INJ 2 MG/ML 2 ML VIAL ONE (16:07)
[2020-07-09] MEDS ORDERED: DEXAMETHASONE SOD INJ 4 MG/ML VIAL ONE (16:07)
[2020-07-09] MEDS ORDERED: MIDAZOLAM HCL 1 MG/ML 2ML VIAL ONE (16:07)
[2020-07-09] MEDS ORDERED: fentaNYL citrate 100 MCG/2 ML VIAL ONE (16:07)
--- NOTE | 2020-07-09 16:11 | Anesthesiology Consultation ---
Date of Service July 09, 2020 Assessment & Plan Chart Review Chart Review: Acceptable Risk for Surgery Consults Requested none History Surgery Operation Date: 07/09/20 11:45 Proposed Procedures p Endoscopic Retrograde Cholangiopancreatogram - Edward Sanchez Operation Date: 07/10/20 10:45 Proposed Procedures p Laparoscopic Cholecystectomy with Cholangiogram - Tan Jimenez MD, FACS Height/Weight Height: 5 ft 3 in Weight: 72.3 kg Allergies Allergy/AdvReac Type Severity Reaction Status Date / Time No Known Allergies Allergy Unverified 07/08/20 16:31 Medications Home Medications Medication Instructions Recorded Confirmed Last Taken No Known Home Medications 07/08/20 07/08/20 Unknown Active Medications Generic Name Dose Route Start Last Admin Trade Name Freq PRN Reason Stop Dose Admin Piperacillin Sod/Tazobactam 115 mls @ 28.75 mls/hr 07/09/20 04:00 07/09/20 13:13 Sod 3.375 gm/ Dextrose IV 07/18/20 03:59 28.8 mls/hr Q8H EDA Administration Protocol Morphine Sulfate 2 mg 07/08/20 20:59 07/09/20 14:37 Morphine Sulfate 2 Mg/Ml Carp IV 07/22/20 20:58 2 mg Q3H PRN Administration Pain (1,2,3,4,5) & Pre PT Ondansetron HCl 4 mg 07/08/20 21:49 07/09/20 10:21 Ondansetron Inj 2 Mg/Ml 2 Ml Vial IV 08/07/20 21:48 4 mg Q6H PRN Administration Nausea And Vomiting NPO Date Last Intake of Fluids: 07/08/20 Time Last Intake of Fluids: 12:00 Date Last Intake of Solids: 07/08/20 Time Last Intake of Solids: 12:00 Past Medical History Medical History No pertinent past medical history Past Surgical History Surgical History No pertinent past surgical history Social History Smoking Status: Never smoker Do You Dip or Chew Tobacco: No Hx Alcohol Use: No Hx Substance Use: No Physical Exam Vital Signs Last Vital Signs Temp 37.5 C 07/09/20 16:06 Pulse 60 07/09/20 16:06 Resp 16 07/09/20 16:06 BP 107/80 07/09/20 16:06 Pulse Ox 99 07/09/20 16:06 Testing Laboratory Results 07/09/20 05:42 07/09/20 05:42 PT 10.5 Seconds (9.0-12.0) 07/08/20 17:37 INR 1.0 (0.9-1.1) 07/08/20 17:37 Urine Color Dark Yellow 07/08/20 16:25 Urine Appearance Cloudy (Clear) A 07/08/20 16:25 Urine pH 7.0 (4.5-7.5) 07/08/20 16:25 Ur Specific [place] 1.026 (1.000-1.030) 07/08/20 16:25 Urine Protein 1+ (Negative) H 07/08/20 16:25 Urine Glucose (UA) Negative (Negative) 07/08/20 16:25 Urine Ketones 4+ (Negative) H 07/08/20 16:25 Urine Nitrite Positive (Negative) A 07/08/20 16:25 Ur Leukocyte Esterase 1+ (Negative) H 07/08/20 16:25 Urine WBC (Auto) 1-5 /hpf (0-5) 07/08/20 16:25 Urine RBC (Auto) 5-10 /hpf (0-4) H 07/08/20 16:25 U Hyaline Cast (Auto) 1-5 /lpf (0-5) 07/08/20 16:25 U Epithel Cells (Auto) >30 /lpf (0-5) H 07/08/20 16:25 Urine Bacteria (Auto) Negative (Negative) 07/08/20 16:25 07/08/20 16:25 Urine Culture - Preliminary Urine,Clean Catch Pin-point growth present, reincubating. 07/08/20 16:25 POC Ur Test NEG
--- NOTE | 2020-07-09 16:26 | Consultation Report ---
DATE OF CONSULTATION: 07/09/2020 Addendum to the consult note by Bianca Metzger: REASON FOR EVALUATION: Common bile duct stone. HISTORY: The patient is a 25-year-old female who presented with abdominal pain. Her liver tests were found to be abnormal and on imaging, she was found to have gallstones and a dilated bile duct on CT scan. An MRCP performed earlier today showed evidence of what appeared to be about an 8 mm common bile duct stone in the distal bile duct and inflammation around her gallbladder consistent with acute cholecystitis. The patient has been placed on IV Zosyn and has been scheduled for an ERCP later today. Consent has been signed. The patient has been informed of the risks and benefits and agrees to proceed.
--- NOTE | 2020-07-09 17:19 | GI REPORT ---
Patient Name: Niurka Gustafson Procedure Date: 07/09/2020 4:17 PM Date of : 1995 Admit Type: Inpatient Age: 25 Gender: Female Attending MD: Edward Sanchez MD Procedure: ERCP Providers: Edward Sanchez MD Referring MD: Referred Self Indications: Common bile duct stone(s) Medicines: General Anesthesia, Indomethicin 100 mg rectal, Zosyn Complications: No immediate complications. Estimated Blood Loss: Estimated blood loss was minimal. Procedure: Pre-Anesthesia Assessment: - Prior to the procedure, a History and Physical was performed, and patient medications, allergies and sensitivities were reviewed. The patient's tolerance of previous anesthesia was reviewed. - The risks and benefits of the procedure and the sedation options and risks were discussed with the patient. All questions were answered and informed consent was obtained. After obtaining informed consent, the scope was passed under direct vision. Throughout the procedure, the patient's blood pressure, pulse, and oxygen saturations were monitored continuously. The scope was introduced through the mouth, and advanced to the duodenum and used to inject contrast into the bile duct. The ERCP was accomplished without difficulty. The patient tolerated the procedure well. The Scope was introduced through the mouth, and advanced to the duodenum and used to inject contrast into the bile duct. Findings: The bile duct was deeply cannulated with the short-nosed traction sphincterotome. Contrast was injected. I personally interpreted the bile duct images. There was brisk flow of contrast through the ducts. The middle third of the main bile duct contained filling defect(s) thought to be a polyp. The [Site] contained a single localized stenosis 10 mm in length. Cells for cytology were obtained by brushing in the middle third of the main bile duct. To discover objects, the biliary tree was swept with a 12 mm balloon starting at the upper third of the main bile duct. Nothing was found. One 10 Fr by 7 cm plastic stent with two internal flaps was placed into the common bile duct. Bile flowed through the stent. The stent was in good position. A 5 mm biliary sphincterotomy was made with a short nose sphincterotome using ERBE electrocautery. There was no post-sphincterotomy bleeding. Impression: - The examination was suspicious for biliary polyps. - A single localized biliary stricture was found. The stricture was indeterminate. - Cells for cytology obtained in the middle third of the main bile duct. - The biliary tree was swept and nothing was found. - One plastic stent was placed into the common bile duct. Recommendation: - Return patient [facility] for [facility] care. Edward Sanchez M.D. Edward Sanchez MD 07/09/2020 5:18:42 PM This report has been signed electronically. Note Initiated On: 07/09/2020 4:17 PM Number of Addenda: 0 I attest to the content of the Intraoperative Record and orders documented therein, exceptions below {[id number]}
[2020-07-09] MEDS ORDERED: ONDANSETRON INJ 2 MG/ML 2 ML VIAL IV PRN (17:23)
[2020-07-09] MEDS ORDERED: HYDROmorphone INJ 2 MG/ML SYR/VIAL IV PRN (17:23)
[2020-07-09] MEDS ORDERED: PROMETHAZINE HCL 12.5 MG in SODIUM CHLORIDE 0.9% 50 ML IV PRN (17:23)
[2020-07-09] MEDS ORDERED: ATROPINE SULFATE 0.1 MG/ML 10ML SYR IV PRN (17:23)
[2020-07-09] MEDS ORDERED: METOCLOPRAMIDE HCL INJ 5 MG/ML 2 ML VIAL IV PRN (17:23)
[2020-07-09] MEDS ORDERED: ePHEDrine sulfate 50 MG/ML AMP IV PRN (17:23)
[2020-07-09] MEDS ORDERED: fentaNYL citrate 100 MCG/2 ML VIAL IV PRN (17:23)
--- NOTE | 2020-07-09 17:52 | Anesthesiology Progress Note ---
Date of Service July 09, 2020 Anesthesia Post Procedure Vital Signs Vital Signs: Temp Pulse Pulse Pulse Resp BP BP 07/09/20 17:45 56 L 14 119/80 07/09/20 17:35 73 12 102/88 07/09/20 17:25 91 H 23 135/91 07/09/20 17:16 37 C 82 14 130/87 07/09/20 16:06 37.5 C 60 16 107/80 07/09/20 14:41 37.1 C 58 L 16 110/72 07/09/20 08:11 37.3 C 78 14 129/84 07/08/20 21:52 37.0 C 61 16 126/83 07/08/20 21:30 70 16 123/87 07/08/20 21:00 65 14 129/87 07/08/20 20:30 66 14 133/87 07/08/20 20:00 68 14 138/95 07/08/20 19:43 135/95 07/08/20 19:30 114/78 07/08/20 19:00 68 14 138/82 07/08/20 18:30 60 16 121/77 07/08/20 18:00 64 14 120/81 Pulse Ox 07/09/20 17:45 97 07/09/20 17:35 98 07/09/20 17:25 100 07/09/20 17:16 100 07/09/20 16:06 99 07/09/20 14:41 97 07/09/20 08:11 98 07/08/20 21:52 99 07/08/20 21:30 97 07/08/20 21:00 98 07/08/20 20:30 98 07/08/20 20:00 98 07/08/20 19:43 99 07/08/20 19:30 99 07/08/20 19:00 98 07/08/20 18:30 98 07/08/20 18:00 98 Pain Intensity Generalized: Pain Intensity: 3 Upper Abdomen: Pain Intensity: 3 Transfer of Care Handoff Completed per policy Notes Mental Status: alert / awake / arousable and participated in evaluation Patient Amnestic to Procedure: Yes Nausea / Vomiting: adequately controlled Pain: adequately controlled Airway Patency, RR, SpO2: stable & adequate BP & HR: stable & adequate Hydration State: stable & adequate Anesthetic Complications: no major complications apparent
--- NOTE | 2020-07-09 18:44 | Fluoroscopy Report ---
[place] ERCP biliary ductal CLINICAL HISTORY: ERCP COMPARISON STUDY: None. FLUOROSCOPY TIME: 2 minutes and 26 seconds. FINDINGS: 8 fluoroscopic spot images of the right upper quadrant demonstrates cannulation of the ampu lla with injection of contrast into the common bile duct. A balloon sweep was performed. This was fol lowed by placement of a common bile duct stent which appears in good position. IMPRESSION: Fluoroscopy provided for ERCP with placement of a common bile duct stent which appears in good position. ACT 112: Negative or not required by law. Electronically signed by: Tru Perea M.D. 07/09/2020 6:42 PM
--- NOTE | 2020-07-09 18:56 | Billing Data ---
Date of Service July 09, 2020 Coding Level of Care Code 16560 Subseq Hosp Care Lvl 2
[2020-07-10] MEDS ORDERED: LACTATED RINGER'S 1,000 ML IV SCH (00:05)
[2020-07-10] MEDS: PIPERACILLIN/TAZOBACTAM 3.375 GM in DEXTROSE 5% 100 ML IV SCH ×3 (04:45→20:50)
--- NOTE | 2020-07-10 07:17 | Medical Student Progress Note ---
Date of Service July 10, 2020 Assessment & Plan (1) Acute calculous cholecystitis: Patient is a 25 year old female with no PMHx that presented to the ED on 07/08 with 1 day history of upper R abdominal pain and vomiting. She was admitted with acute cholecystitis and is currently s/p cholecystectomy. Her ERCP saw indeterminant biliary stricture, and GI will plan further evaluation and management. Acute Calculous Cholecystitis -Ab/Pelv CT noting distended GB with wall thickening, pericholecystic inflammation, and small calcified gallstones -MRCP showed distended GB with stones and CBD dilation consistent with choledocholithiasis -T bili 2.1 on 07/10 down from 4.4 -Transaminitis AST 357, ALT 1115, Alk Phos 247 -ERCP found indeterminate biliary stricture and no stones in the CBD, stent was placed in the CBD, cells were collected for cytology -CEA normal, pending CA 19-9, CA 27-29 -Cytology saw moderate inflammation and reactive glandular atypia, no dysplasia or carcinoma seen -GI will plan follow-up and further work-up for biliary stricture -Lap buzz performed 07/10 -Continue Zosyn for 1-2 days -Zofran PRN nausea control -Morphine 2-4mg PRN pain control Elevated D-dimer -COVID-19 negative -Chest CTA negative for clot -Likely acute phase reactant secondary to acute infection Possible UTI -Urine fairly dirty, though without symptoms of dysuria, frequency, hematuria -Cx showed 3+ organism all moderate counts, probable skin walker -Will be covered with Zosyn as above Back Pain -Chronic upper back pain bilaterally between her shoulders -Likely MSK in origin -May see improvement following cholecystectomy due to paralytic muscle relaxant used during surgery -If pain returns patient should establish care with a PCP for management Dispo: Med/Surg for IV antibiotics, pain control, nausea control FEN: LR 80ml/hr DVT: SCD, no pharmacologic prophylaxis unless stay becomes prolonged or pain restricts movement Code: Full Admission and Anticipated Discharge Date Admission Date: July 08, 2020 Supervising Attestation I personally examined the patient and verified all sánchez points of history and exam, discussed case, and agree with decision making with Sofie Garcia Feeling better no significant pain. No significant nausea. Back pain is not present there currently. It is between her shoulder blades worse often whenever she is sitting for quite a while. She is otherwise doing okay. After I left the room, case discussed with Dr. Sanchez Vitals noted, in general she is awake and alert pleasant no distress. HEENT normocephalic atraumatic mucous membranes moist. Breathing unlabored no accessory muscle use good effort. Skin shows no rashes no pallor or icterus. Musculoskeletal/osteopathic shows slightly tender periscapular musculature in the region of the rhomboids cholecystitis and bile duct thickening -zosyn, no post ERCP and cholecystectomy. Concern on biliary thickening whether or not it is tumor. Pathology pending, as discussed with Roby need endoscopic biopsy of bile duct in the near future as well back pain -biomechanicalseems to be rhomboid related. Not present now. Discussed stretches and posture, discussed topical diclofenac, discussed OMT if needed. doubt UTI - probably false (+) UA, although on zosyn anyway no clear need for pharmacologic DVT proph unless stay becomes prolonged or pain limits mobility/etc otherwise as above Subjective Linying is feeling much better today and reports not feeling any pain in her abdomen or back. She slept well last night. She is concerned about the discoloration of her urine, which continues to be orange-tinged. She was reassured that the discoloration was likely secondary to her cholecystitis not a UTI due to her lack of frequency, urgency, or dysuria. Following her laparoscopic cholecystectomy, she is feeling fine with some soreness that is managed well with IV pain medication. A more extensive history was obtained for her chronic back pain. She began having upper back pain bilaterally between her shoulder in Jan 2020, and the pain became more frequent occurring weekly since April. She gets massages to manage the pain, but relief does not last. We discussed how the pain is likely due to poor posture with prolonged sitting and working. She could expect some extended relief following this surgery due to muscle relaxants used during the operation. Should the pain return, she is advised to have a physician follow her for management. Review of Systems Review of Systems: All systems reviewed & are unremarkable except as noted in HPI & below Physical Exam Constitutional: WD/WN, vitals as above no acute distress Respiratory: normal respiratory effort, lungs clear to auscultation Auscultation: no rales, no rhonchi and no wheezes Cardiovascular: RRR, no murmur, no edema Heart Sounds: normal S1 and normal S2; no gallop and no cardiac rub Gastrointestinal (Abdomen): Inspection/Auscultation: abdomen normal to inspection and + hypoactive bowel sounds (likely due to NPO status); abdomen not distended Percussion/Palpation: + abdomen tender (mild tenderness with deep palpation in all quadrants) and abdomen soft; no guarding Skin: no rashes, warm and dry Psychiatric: A+Ox3, euthymic affect Results & Data ([facility]) Vital Signs (Past 12 Hours) Vital Signs Temp Pulse Resp BP Pulse Ox 07/10/20 01:30 36.9 C 61 16 100/66 96 07/09/20 21:15 36.7 C 55 L 16 105/72 97 07/09/20 20:20 37 C 60 16 101/69 97 07/09/20 19:34 36.9 C 56 L 16 111/73 98
--- NOTE | 2020-07-10 08:03 | Surgery Progress Note ---
Date of Service July 10, 2020 Assessment & Plan (1) Acute calculous cholecystitis: Discussed ERCP findings with the patient an area of narrowing that was brushed for cytology The patient has been eating fish pretty much all her life in [place] Consideration is given that this may be secondary to fluke ingestion We will proceed with laparoscopic cholecystectomy possible cholangiogram today Risk and complication were explained to the patient All question answered At this time I am not sure I will be doing the surgery or Dr. Kern and we will signed the permit accordingly once this is the side Present on Admission?: Yes Admission and Anticipated Discharge Date Admission Date: July 08, 2020 Subjective She is resting comfortably fact when I walked in the room she was sleeping had a good night no major complaints Physical Exam Physical Exam: Alert coherent without any complaints The sclera is minimal icteric The abdomen is completely benign Results & Data ([facility]) Vital Signs (Past 12 Hours) Vital Signs Temp Pulse Pulse Resp BP Pulse Ox 07/10/20 07:33 36.8 C 53 L 16 101/66 97 07/10/20 01:30 36.9 C 61 16 100/66 96 07/09/20 21:15 36.7 C 55 L 16 105/72 97 07/09/20 20:20 37 C 60 16 101/69 97 Reviewed the results from the ERCP PG Care Time/CCT Total # of Minutes Spent Total Time Spent with Patient: Total time spent is greater than 50% in coordination of care (as documented) at patient's floor/unit and/or counseling patient: Coding Level of Care Code 16044 Subseq Hosp Care Lvl 3 Diagnoses Acute calculous cholecystitis K80.00
--- NOTE | 2020-07-10 08:34 | Gastroenterology Progress Note ---
Date of Service July 10, 2020 Assessment & Plan (1) Acute calculous cholecystitis: Patient s/p ERCP and doing well this morning. Added orders for AM labs - CBCD, CMP. Plan for today is lap cholecystectomy by surgical services. Please refer to supervising physician addendum for further recommendations. Admission and Anticipated Discharge Date Admission Date: July 08, 2020 Subjective Patient sitting upright in bed, awake, and on her tablet. Reports she is doing well today. Denies abdominal pain, nausea, or vomiting. Does note her throat is mildly sore this morning. 07/09/2020: ERCP notes reviewed, performed by Dr. Sanchez. Exam suspicious for biliary polyps, a single localized biliary stricture was found and indeterminate. Cells for cytology obtained in the middle third of the main bile duct. Biliary tree was swept and nothing was found. One plastic stent was placed into the CBD. Review of Systems Review of Systems: All systems reviewed & are unremarkable except as noted in Subjective Physical Exam Constitutional: well developed and well nourished; no acute distress Eyes: + anicteric sclerae; no conjunctival abnormality ENMT: Ears: no hearing impairment Neck: normal visual inspection and trachea midline Respiratory: normal respiratory effort, lungs clear to auscultation Cardiovascular: Rate/Rhythm: regular rate and regular rhythm Gastrointestinal (Abdomen): Inspection/Auscultation: normal bowel sounds; abdomen not distended Percussion/Palpation: abdomen soft; no guarding and abdomen not rigid Skin: no rashes, warm and dry Neurologic: moves all extremities Psychiatric: A+Ox3, euthymic affect Results & Data ([facility]) Vital Signs (Past 12 Hours) Vital Signs Temp Pulse Pulse Resp BP Pulse Ox 07/10/20 07:33 36.8 C 53 L 16 101/66 97 07/10/20 01:30 36.9 C 61 16 100/66 96 07/09/20 21:15 36.7 C 55 L 16 105/72 97 Laboratory Results - last 24 hr 07/09/20 07/09/20 18:13 18:13 Carcinoembryonic Ag < 0.5 CA 19-9 Antigen Pending CA 27-29 Pending
[2020-07-10 09:55] LABS: Basophils # (auto) 0.01 K/uL (0-0.2); Basophils % (auto) 0.2 %; Eosinophils # (auto) 0.07 K/uL (0-0.5); Eosinophils % (auto) 1.2 %; Hematocrit (blood only) 37.2 % (37-47); Hemoglobin 12.5 g/dL (12.0-16.0); Immature Granulocytes # (auto) 0.01 K/uL (0.00-0.02); Immature Granulocytes % (auto) 0.2 %; Lymphocytes # (auto) 1.54 K/uL (1.2-3.4); Lymphocytes % (auto) 25.6 %; Mean Corpuscular Hgb Conc 33.6 g/dL (32-36); Mean Corpuscular Volume 80.3 fL (80-100); Mean Platelet Volume 9.6 fL (7.4-10.4); Monocytes # (auto) 0.33 K/uL (0.11-0.59); Monocytes % (auto) 5.5 %; Neutrophils # (auto) 4.06 K/uL (1.4-6.5); Neutrophils % (auto) 67.3 %; Platelet Count 277 K/uL (130-400); RDW Coefficient of Variation 13.1 % (11.5-14.5); RDW Standard Deviation 38.6 fL (36.4-46.3); Red Blood Count 4.63 M/uL (4.2-5.4); White Blood Count 6.02 K/uL (4.8-10.8)
[2020-07-10] MEDS ORDERED: fentaNYL citrate 100 MCG/2 ML VIAL ONE (10:20)
[2020-07-10] MEDS ORDERED: ONDANSETRON INJ 2 MG/ML 2 ML VIAL ONE (10:20)
[2020-07-10] MEDS ORDERED: PROPOFOL IV EMULSION 10 MG/ML 20 ML VIAL IV ONE (10:20)
[2020-07-10] MEDS ORDERED: GLYCOPYRROLATE 0.2 MG/ML VIAL ONE (10:20)
[2020-07-10] MEDS ORDERED: NEOSTIGMINE METHYLSULFATE 5 MG/5 ML SYR ONE (10:20)
[2020-07-10] MEDS ORDERED: DEXAMETHASONE SOD INJ 4 MG/ML VIAL ONE (10:20)
[2020-07-10] MEDS ORDERED: MIDAZOLAM HCL 1 MG/ML 2ML VIAL ONE (10:20)
[2020-07-10] MEDS ORDERED: LIDOCAINE HCL 2% 2 ML VIAL/AMP(20MG/ML) INFIL ONE (10:20)
[2020-07-10 10:21] LABS: Albumin Level 3.3 gm/dl (3.4-5.0); BUN Creatinine Ratio 11.5 (10-20); Calcium 8.5 mg/dl (8.5-10.1); Creatinine Clr Calc Pharmacy 115.4 ml/min; Est GFR (African American) 137.2; Est GFR (Non-African American) 118.4; Potassium 3.5 mmol/L (3.5-5.1)
[2020-07-10 10:32] LABS: Albumin Globulin Ratio 0.9 (0.9-2); Bilirubin,Total 2.1 mg/dl (0.2-1); Globulin 3.6 gm/dl (2.5-4.0); Total Protein 6.9 gm/dl (6.4-8.2)
[2020-07-10] MEDS ORDERED: ATROPINE SULFATE 0.1 MG/ML 10ML SYR IV PRN (10:37)
[2020-07-10] MEDS ORDERED: LABETALOL HCL IV 5 MG/ML 20ML IV PRN (10:37)
[2020-07-10] MEDS ORDERED: fentaNYL citrate 100 MCG/2 ML VIAL IV PRN (10:37)
[2020-07-10] MEDS ORDERED: PHENYLEPHRINE 100MCG/ML 5ML SYR IV PRN (10:37)
[2020-07-10] MEDS ORDERED: ePHEDrine sulfate 50 MG/ML AMP IV PRN (10:37)
[2020-07-10] MEDS ORDERED: MEPERIDINE HCL 25 MG/ML CARP/VIAL IV PRN (10:37)
[2020-07-10] MEDS ORDERED: ONDANSETRON INJ 2 MG/ML 2 ML VIAL IV PRN (10:37)
[2020-07-10] MEDS ORDERED: HYDROmorphone INJ 1 MG/ML SYRINGE IV PRN (10:37)
--- NOTE | 2020-07-10 10:39 | Anesthesiology Consultation ---
Date of Service July 10, 2020 Assessment & Plan (1) Encounter for pre-operative examination: Chart Review Chart Review: Acceptable Risk for Surgery and Patient NOT seen in Pre Admission Testing Consults Requested none History Surgery Operation Date: 07/09/20 11:45 Proposed Procedures p Endoscopic Retrograde Cholangiopancreatogram - Edward Sanchez Operation Date: 07/10/20 11:05 Proposed Procedures p Laparoscopic Cholecystectomy with Cholangiogram - Jared Kern, DO, FACS Height/Weight Height: 5 ft 3 in Weight: 72.3 kg Allergies Allergy/AdvReac Type Severity Reaction Status Date / Time No Known Allergies Allergy Unverified 07/08/20 16:31 Medications Home Medications Medication Instructions Recorded Confirmed Last Taken No Known Home Medications 07/08/20 07/08/20 Unknown Active Medications Generic Name Dose Route Start Last Admin Trade Name Freq PRN Reason Stop Dose Admin Piperacillin Sod/Tazobactam 115 mls @ 28.75 mls/hr 07/09/20 04:00 07/10/20 09:00 Sod 3.375 gm/ Dextrose IV 07/18/20 03:59 Infused Q8H EDA Infusion Protocol Sodium Chloride 1,000 mls @ 15 mls/hr 07/09/20 15:15 07/09/20 18:33 Nss 1000ml IV 07/10/20 15:14 Not Given .Q24H EDA Lactated Ringer's 1,000 mls @ 80 mls/hr 07/10/20 00:05 07/09/20 23:43 Lr IV 07/10/20 12:34 80 mls/hr .[id number] EDA Administration Morphine Sulfate 2 mg 07/08/20 20:59 07/09/20 14:37 Morphine Sulfate 2 Mg/Ml Carp IV 07/22/20 20:58 2 mg Q3H PRN Administration Pain (1,2,3,4,5) & Pre PT Ondansetron HCl 4 mg 07/08/20 21:49 07/09/20 10:21 Ondansetron Inj 2 Mg/Ml 2 Ml Vial IV 08/07/20 21:48 4 mg Q6H PRN Administration Nausea And Vomiting NPO Date Last Intake of Fluids: 07/09/20 Time Last Intake of Fluids: 23:59 Date Last Intake of Solids: 07/07/20 Time Last Intake of Solids: 12:00 Last Intake of Solids Comment: per patient report no solid food x2 days Past Medical History Medical History (Updated 07/10/20 @ 10:39 by Tru Carrillo MD) No pertinent past medical history Past Surgical History Surgical History No pertinent past surgical history Social History Smoking Status: Never smoker Do You Dip or Chew Tobacco: No Hx Alcohol Use: No Hx Substance Use: No Physical Exam Vital Signs Last Vital Signs Temp 37.0 C 07/10/20 10:23 Pulse 55 L 07/10/20 10:23 Resp 16 07/10/20 10:23 BP 100/68 07/10/20 10:23 Pulse Ox 98 07/10/20 10:23 Testing Laboratory Results 07/10/20 09:34 07/10/20 09:34 PT 10.5 Seconds (9.0-12.0) 07/08/20 17:37 INR 1.0 (0.9-1.1) 07/08/20 17:37 Urine Color Dark Yellow 07/08/20 16:25 Urine Appearance Cloudy (Clear) A 07/08/20 16:25 Urine pH 7.0 (4.5-7.5) 07/08/20 16:25 Ur Specific [place] 1.026 (1.000-1.030) 07/08/20 16:25 Urine Protein 1+ (Negative) H 07/08/20 16:25 Urine Glucose (UA) Negative (Negative) 07/08/20 16:25 Urine Ketones 4+ (Negative) H 07/08/20 16:25 Urine Nitrite Positive (Negative) A 07/08/20 16:25 Ur Leukocyte Esterase 1+ (Negative) H 07/08/20 16:25 Urine WBC (Auto) 1-5 /hpf (0-5) 07/08/20 16:25 Urine RBC (Auto) 5-10 /hpf (0-4) H 07/08/20 16:25 U Hyaline Cast (Auto) 1-5 /lpf (0-5) 07/08/20 16:25 U Epithel Cells (Auto) >30 /lpf (0-5) H 07/08/20 16:25 Urine Bacteria (Auto) Negative (Negative) 07/08/20 16:25 07/08/20 16:25 Urine Culture - Preliminary Urine,Clean Catch Pin-point growth present, reincubating. 07/08/20 16:25 POC Ur Test NEG
[2020-07-10] MEDS ORDERED: BUPIVACAINE 0.5 % 5 MG/1 ML MPF 30ML VIAL ONE (10:48)
--- NOTE | 2020-07-10 10:50 | Operative Report (OR) ---
DATE OF OPERATION: 07/09/2020 The patient was brought to the operating room for an ERCP for presumed common duct stone seen on MRCP. The patient had her bile duct injected and there appeared to be a filling defect in the middle third of the main bile duct. A 5 mm sphincterotomy was performed with no blood loss. The duct was swept several times with a 10, 12, and 15 mm balloon, but was unable to extract any filling defects and there remained a filling defect in the mid duct worrisome for a tumor. This area was then brushed for cytology and a 7 cm 10-Kazakh stent placed spanning the strictured area. Postoperatively, a CEA, CA 19-9, and CA 27-29 were ordered for tumor markers for possible cholangiocarcinoma. Cytology is pending. I attest to the content of the Intraoperative Record and any orders documented therein. Any exception s are noted below.
--- NOTE | 2020-07-10 10:55 | Surgery Progress Note ---
Date of Service July 10, 2020 Assessment & Plan (1) Acute calculous cholecystitis: 25-year-old female admitted with choledocholithiasis and acute cholecystitis status post ERCP with stent placement. Plan for laparoscopic cholecystectomy with possible cholangiogram The risks of the procedure were discussed to include but not limited to bleeding, infection, retained stone, bile leak, damage surrounding structures, conversion open, need for future more extensive surgery, and the risk of anesthesia The diagnosis, details of the procedure and recovery, and the change of surgeon were discussed with the patient, all questions were answered, the patient expressed understanding agrees the plan of care as stated (2) Choledocholithiasis with acute cholecystitis: Admission and Anticipated Discharge Date Admission Date: July 08, 2020 Subjective 25-year-old female admitted with choledocholithiasis status post ERCP yesterday with clearance of duct and brushings of the possible stricture. Feels little better this morning. She has been followed by Dr. Sheikh. No allergies, no other significant medical problems. Physical Exam Constitutional: WD/WN, vitals as above Gastrointestinal (Abdomen): normal bowel sounds, soft, nontender, no hepatosplenomegaly Results & Data ([facility]) Vital Signs (Past 12 Hours) Vital Signs Temp Pulse Pulse Resp BP Pulse Ox 07/10/20 10:23 37.0 C 55 L 16 100/68 98 07/10/20 07:33 36.8 C 53 L 16 101/66 97 07/10/20 01:30 36.9 C 61 16 100/66 96 PG Care Time/CCT Total # of Minutes Spent Total Time Spent with Patient: Total time spent is greater than 50% in coordination of care (as documented) at patient's floor/unit and/or counseling patient: Coding Level of Care Code None Diagnoses Acute calculous cholecystitis K80.00 Choledocholithiasis with acute cholecystitis K80.42
--- NOTE | 2020-07-10 12:41 | Operative Report ---
PG Post Operative Report Pre & Post Diagnosis Operation Date: 07/10/20 11:05 Pre-Op Diagnosis: Choledocholithiasis with Acute Choleycystitis Post-Op Diagnosis: Choledocholithiasis with Acute Choleycystitis I identified the patient and participated in the time-out.: Yes Procedure Operation Date: 07/10/20 11:05 Actual Procedures p Laparoscopic Cholecystectomy(Not Applicable) - Jared Kern DO, MAT Surgeon Jared Kern DO, MAT Quality Assurance Supervisor Body Nancy Garcia Estimated Blood Loss 20 Findings Consistent with Post-Op Diagnosis Acute cholecystitis present. Gallbladder aspirated to allow for retraction. Critical view of safety obtained. Cystic duct dilated, divided with stapler. Hemostasis good. Specimens Gallbladder Anesthesia Type General Complications none Disposition Accompanied Patient To Recovery: No Disposition: Recovery Room Indications 25-year-old female admitted to the medicine service with choledocholithiasis and acute cholecystitis. She was placed on antibiotics and underwent an ERCP yesterday with removal of the stones, sphincterotomy, and stent placement. Plan for laparoscopic cholecystectomy with possible cholangiogram. The risks of the procedure were discussed, all questions were answered, and the patient agreed to proceed with surgery as planned. Description of Procedure The patient was properly identified, consented, and taken to the operating room where she was placed in the supine position. General endotracheal anesthesia was induced. SCDs and a safety belt were placed. Preoperative antibiotics were administered. The patient's abdomen was prepped and draped in the standard sterile fashion. A surgical timeout was performed and all parties were in agreement that this was the correct patient and procedure to be performed and we continued as planned. An incision was made superior and to the left of the umbilicus overlying the rectus muscle and the Veress needle was inserted. Saline drop test confirmed entry into the peritoneum. The abdomen was insufflated with carbon dioxide which the patient tolerated without incident. The abdomen was then entered using the Optiview technique and a 5 mm trocar. The laparoscope was inserted and no damage from initial trocar or Veress needle placement was noted, no gross abnormalities were noted within the 4 quadrants of the abdomen. An 11 mm port was placed in the subxiphoid position and two 5 mm ports were then placed in the right subcostal position. The patient was placed in reverse Trendelenburg position and rotated towards the left. Gallbladder was acutely inflamed. There were some filmy adhesions and some fibrinous exudate around the dome of the gallbladder that were taken down with blunt dissection. A large needle was used to aspirate the gallbladder in order to allow for better retraction. The dome of the gallbladder was retracted towards the left upper quadrant and the infundibulum was retracted toward the right lower quadrant revealing Calot's triangle. Peritoneal attachments were taken down with electrocautery and blunt dissection. There was significant scarring along the infundibulum. This was gently dissected away with suction dissection along with the [place]. The cystic duct and artery were circumferentially dissected. A window of safety was obtained showing the cystic duct entering the gallbladder with no aberrant structures noted. The cystic duct was dilated. The 11 mm port in the subxiphoid position was replaced with a 12 mm port. And then utilized a purple loaded 45 mm Endo JESSENIA to divide the cystic duct. The cystic artery was doubly clipped and divided. The gallbladder was then lifted off the gallbladder fossa with electrocautery. There was a posterior branch of the cystic artery which was clipped. The gallbladder was placed in an Endo Catch bag and removed through the subxiphoid port site. The right upper quadrant was irrigated and hemostasis was found to be good. 5 mm trochars were removed under direct visualization and the abdomen was allowed to collapse. The subxiphoid port site fascia was closed with 0 Vicryl suture utilizing the Mohsen-Alexandro device prior to the removal of the other ports. The wound was irrigated, and the skin of all ports was closed with 4-0 Monocryl subcuticular sutures. Dermabond was placed over the wounds. The patient was extubated in the operating room and taken to the PACU where she recovered without apparent incident. All sponge, instrument and needle counts were correct at the conclusion of the procedure. The patient tolerated the procedure well. The physician's email marketing assistant was present and scrubbed for the entirety of the case and was essential in positioning the patient, prepping and draping, retraction and exposure, driving the laparoscope, removal of the gallbladder, closure the incisions, and placement of the dressings. I attest to the content of the Intraoperative Record and any orders documented therein. Any exceptions are noted below.
--- NOTE | 2020-07-10 13:16 | Anesthesiology Progress Note ---
Date of Service July 10, 2020 Anesthesia Post Procedure Vital Signs Vital Signs: Temp Pulse Pulse Resp BP Pulse Ox 07/10/20 13:05 55 L 12 122/77 98 07/10/20 12:55 53 L 15 125/77 100 07/10/20 12:48 36 C L 56 L 16 131/81 100 07/10/20 10:23 37.0 C 55 L 16 100/68 98 07/10/20 07:33 36.8 C 53 L 16 101/66 97 07/10/20 01:30 36.9 C 61 16 100/66 96 07/09/20 21:15 36.7 C 55 L 16 105/72 97 07/09/20 20:20 37 C 60 16 101/69 97 07/09/20 19:34 36.9 C 56 L 16 111/73 98 07/09/20 18:39 48 L 14 118/79 97 07/09/20 18:12 37.1 C 50 L 14 121/80 97 07/09/20 17:55 36.8 C 52 L 12 121/75 98 07/09/20 17:45 56 L 14 119/80 97 07/09/20 17:35 73 12 102/88 98 07/09/20 17:25 91 H 23 135/91 100 07/09/20 17:16 37 C 82 14 130/87 100 07/09/20 16:06 37.5 C 60 16 107/80 99 07/09/20 14:41 37.1 C 58 L 16 110/72 97 Pain Intensity Generalized: Pain Intensity: 3 Upper Abdomen: Pain Intensity: 3 Transfer of Care Handoff Completed per policy Notes Mental Status: alert / awake / arousable Patient Amnestic to Procedure: Yes Nausea / Vomiting: adequately controlled Pain: adequately controlled Airway Patency, RR, SpO2: stable & adequate BP & HR: stable & adequate Hydration State: stable & adequate Anesthetic Complications: no major complications apparent and Pt Satisfied with anesthetic care
[2020-07-10] MEDS ORDERED: oxyCODONE/ACETAMINOPHEN 5mg/325mg TAB PO PRN ×2 (13:37)
[2020-07-10] MEDS: LACTATED RINGER'S 1,000 ML IV SCH (14:06)
--- NOTE | 2020-07-10 16:17 | Progress Notes ---
DATE: 07/10/2020 Addition to the progress note by Bianca Metzger from earlier today: The patient is now postop from her laparoscopic cholecystectomy and is awake, alert, and coherent. She has a stent in her bile duct following her ERCP yesterday where she was found to have a filling defect in the mid bile duct consistent with a possible tumor. [place] cytologies from yesterday showed no malignant cells and her CEA is negative. Her CA 19-9 and CA 27-29 are both pending. Her bilirubin has dropped from 4.4 to 2.1 today. AST 10,036 down to 357 today, ALT 1425 down to 1115 today. Alkaline phosphatase remained stable at 247. 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 Once she has had a little bit of time to recover from her gallbladder operation, I would recommend that we refer her to [facility] for repeat ERCP and possibly inspection of the bile duct with the daughter scope with biopsies.
--- NOTE | 2020-07-10 17:45 | Billing Data ---
Date of Service July 10, 2020 Coding Level of Care Code 63513 Subseq Hosp Care Lvl 2
[2020-07-11] MEDS: LACTATED RINGER'S 1,000 ML IV SCH (02:46)
[2020-07-11] MEDS: PIPERACILLIN/TAZOBACTAM 3.375 GM in DEXTROSE 5% 100 ML IV SCH (03:52)
[2020-07-11 07:44] LABS: Basophils # (auto) 0.01 K/uL (0-0.2); Basophils % (auto) 0.1 %; Eosinophils # (auto) 0.03 K/uL (0-0.5); Eosinophils % (auto) 0.3 %; Hematocrit (blood only) 34.6 % (37-47); Hemoglobin 11.8 g/dL (12.0-16.0); Immature Granulocytes # (auto) 0.02 K/uL (0.00-0.02); Immature Granulocytes % (auto) 0.2 %; Lymphocytes # (auto) 2.69 K/uL (1.2-3.4); Lymphocytes % (auto) 27.4 %; Mean Corpuscular Hemoglobin 27.4 pg (25-34); Mean Corpuscular Hgb Conc 34.1 g/dL (32-36); Mean Corpuscular Volume 80.3 fL (80-100); Mean Platelet Volume 9.8 fL (7.4-10.4); Monocytes % (auto) 5.1 %; Neutrophils # (auto) 6.57 K/uL (1.4-6.5); Neutrophils % (auto) 66.9 %; Platelet Count 296 K/uL (130-400); RDW Coefficient of Variation 13.5 % (11.5-14.5); RDW Standard Deviation 39.6 fL (36.4-46.3); Red Blood Count 4.31 M/uL (4.2-5.4); White Blood Count 9.82 K/uL (4.8-10.8)
--- NOTE | 2020-07-11 07:44 | Surgery Progress Note ---
Date of Service July 11, 2020 Assessment & Plan (1) Choledocholithiasis with acute cholecystitis: POD#1 laparoscopic cholecystectomy Patient doing fairly well WBC 9, VSS. BMP/LFTs pending Tolerating clears, okay to continue to advance diet as tolerates this AM Surgical incisions c/d/i Continue prn pain medication Will need to follow up with Dr. Kern within 1-2 weeks at time of discharge Admission and Anticipated Discharge Date Admission Date: July 08, 2020 Supervising Physician Co-Signing Physician Notes Patient seen and examined, labs reviewed, agree with above. 25-year-old female POD #1 laparoscopic cholecystectomy and POD #2 ERCP for choledocholithiasis and acute cholecystitis. Overall doing well, tolerated diet, no abdominal pain, the pain she had prior to surgery is gone. Afebrile, stable vitals. Abdomen is soft, nontender, nondistended. Incisions with Dermabond, no evidence of infection. labs improving. CA 19-9 noted to be elevated, may be related to choledocholithiasis and cholecystitis. Okay to discharge to home from general surgery standpoint, no need for antibiotics from general surgery but may want to check with GI. Follow-up in 2 weeks, activity restrictions and wound care instructions reviewed. Subjective Patient states she is feeling well. Tolerating clears, no nausea/vomiting. Has some expected greer-incisional pain. Physical Exam Physical Exam: awake/alert Constitutional: well developed and well nourished; no acute distress Respiratory: normal respiratory effort Gastrointestinal (Abdomen): Inspection/Auscultation: + abdominal surgical incision (c/d/i with dermabond; no signs of infections); abdomen not distended Percussion/Palpation: + abdomen tender (expected ttp greer-incisionally) and abdomen soft Results & Data ([facility]) Vital Signs (Past 12 Hours) Vital Signs Temp Pulse Resp BP Pulse Ox 07/11/20 07:20 37.2 C 60 18 107/69 97 07/11/20 03:27 37.0 C 55 L 17 111/75 98 07/10/20 22:35 37.3 C 60 18 100/60 94 PG Care Time/CCT Total # of Minutes Spent Total Time Spent with Patient: Total time spent is greater than 50% in coordination of care (as documented) at patient's floor/unit and/or counseling patient: Coding Level of Care Code None Diagnoses Choledocholithiasis with acute cholecystitis K80.42
[2020-07-11 08:15] LABS: Albumin Level 2.9 gm/dl (3.4-5.0); BUN Creatinine Ratio 10.2 (10-20); Calcium 8.4 mg/dl (8.5-10.1); Creatinine Clr Calc Pharmacy 113.8 ml/min; Est GFR (African American) 134.9; Est GFR (Non-African American) 116.4; Potassium 3.2 mmol/L (3.5-5.1)
[2020-07-11 08:19] LABS: Bilirubin Direct 0.4 mg/dl (0-0.2); Total Protein 6.2 gm/dl (6.4-8.2)
--- NOTE | 2020-07-11 08:44 | Gastroenterology Progress Note ---
Date of Service July 11, 2020 Assessment & Plan (1) Choledocholithiasis with acute cholecystitis: The patient is doing well this morning. She is postop day 1 from laparoscopic cholecystectomy. For cytology from ERCP demonstrated no malignant cells and CEA is negative. Her CA 199 and CA 2729 are both still pending. LFTs continue to trend down. Total bilirubin is down today to 1.0 from 2.1, AST 190 from 357, ALT 806 from 1115, alk phos [address] Sanchez is concerned that the patient has a bile duct tumor and recommends a referral to [facility] for repeat ERCP and possible inspection of the bile duct with biopsies. We will arrange follow-up in GI for the patient discharge. Please refer to supervising physician addendum for further recommendations. Admission and Anticipated Discharge Date Admission Date: July 08, 2020 Subjective Patient states she is feeling well this morning. She is sitting upright in bed video chatting with her friend. She tolerated clear liquids this morning without difficulty. Denies nausea or vomiting. She does note some periincisional abdominal pain which is expected. She reports that she is pass ing gas. No bowel movement this morning. Review of Systems Review of Systems: All systems reviewed & are unremarkable except as noted in Subjective Physical Exam Constitutional: well developed and well nourished; no acute distress Eyes: + anicteric sclerae; no conjunctival abnormality ENMT: Ears: no hearing impairment Neck: normal visual inspection and trachea midline Respiratory: normal respiratory effort, lungs clear to auscultation Cardiovascular: Rate/Rhythm: regular rate and regular rhythm Gastrointestinal (Abdomen): Inspection/Auscultation: normal bowel sounds; abdomen not distended Percussion/Palpation: abdomen soft; no guarding and abdomen not rigid + abdominal surgical incision (c/d/i with dermabond; no signs of infections) Skin: no rashes, warm and dry Neurologic: moves all extremities Psychiatric: A+Ox3, euthymic affect Results & Data ([facility]) Vital Signs (Past 12 Hours) Vital Signs Temp Pulse Resp BP Pulse Ox 07/11/20 07:20 37.2 C 60 18 107/69 97 07/11/20 03:27 37.0 C 55 L 17 111/75 98 07/10/20 22:35 37.3 C 60 18 100/60 94 Laboratory Results - last 24 hr 07/10/20 07/10/20 07/11/20 09:34 09:34 07:20 WBC 6.02 9.82 RBC 4.63 4.31 Hgb 12.5 11.8 L Hct 37.2 34.6 L MCV 80.3 80.3 MCH 27.0 27.4 MCHC 33.6 34.1 RDW Std Deviation 38.6 39.6 RDW Coeff of Joycelyn 13.1 13.5 Plt Count 277 296 MPV 9.6 9.8 Immature Gran % (Auto) 0.2 0.2 Neut % (Auto) 67.3 66.9 Lymph % (Auto) 25.6 27.4 Wilkinson % (Auto) 5.5 5.1 Eos % (Auto) 1.2 0.3 Baso % (Auto) 0.2 0.1 Neut # (Auto) 4.06 6.57 H Lymph # (Auto) 1.54 2.69 Wilkinson # (Auto) 0.33 0.50 Eos # (Auto) 0.07 0.03 Baso # (Auto) 0.01 0.01 Immature Gran # (Auto) 0.01 0.02 Sodium 137 Potassium 3.5 Chloride 104 Carbon Dioxide 26 Anion Gap 7.0 BUN 8 Creatinine 0.71 Est Cr Clr Drug Dosing 115.4 Est GFR ( Amer) 137.2 Est GFR (Non-Af Amer) 118.4 BUN/Creatinine Ratio 11.5 Glucose 99 Calcium 8.5 Total Bilirubin 2.1 H D Direct Bilirubin AST 357 H ALT 1115 H Alkaline Phosphatase 247 H Total Protein 6.9 Albumin 3.3 L Globulin 3.6 Albumin/Globulin Ratio 0.9 07/11/20 07:20 WBC RBC Hgb Hct MCV MCH MCHC RDW Std Deviation RDW Coeff of Joycelyn Plt Count MPV Immature Gran % (Auto) Neut % (Auto) Lymph % (Auto) Wilkinson % (Auto) Eos % (Auto) Baso % (Auto) Neut # (Auto) Lymph # (Auto) Wilkinson # (Auto) Eos # (Auto) Baso # (Auto) Immature Gran # (Auto) Sodium 137 Potassium 3.2 L Chloride 106 Carbon Dioxide 24 Anion Gap 7.0 BUN 7 Creatinine 0.72 Est Cr Clr Drug Dosing 113.8 Est GFR ( Amer) 134.9 Est GFR (Non-Af Amer) 116.4 BUN/Creatinine Ratio 10.2 Glucose 98 Calcium 8.4 L Total Bilirubin 1.0 D Direct Bilirubin 0.4 H AST 190 H ALT 806 H Alkaline Phosphatase 182 H Total Protein 6.2 L Albumin 2.9 L Globulin Albumin/Globulin Ratio
[2020-07-11 12:56] LABS: CA 27.29 <8 U/mL (<38); Cancer Antigen 19-9 67 U/mL (<34)
--- NOTE | 2020-07-11 13:19 | Medical Student Progress Note ---
Date of Service July 11, 2020 Assessment & Plan (1) Acute calculous cholecystitis: Patient is a 25 year old female with no PMHx that presented to the ED on 07/08 with 1 day history of upper R abdominal pain and vomiting. She was admitted with acute cholecystitis and is s/p cholecystectomy. Her ERCP saw indeterminant biliary stricture, and GI will plan further evaluation and management. Plan for discharge tomorrow morning. Acute Calculous Cholecystitis -Ab/Pelv CT noting distended GB with wall thickening, pericholecystic inflammation, and small calcified gallstones -MRCP showed distended GB with stones and CBD dilation consistent with choledocholithiasis -T bili 1.0 on 07/11 down from 2.1 / Direct bili 0.4 -Transaminitis AST 190, ALT 806, Alk Phos 182 -ERCP found indeterminate biliary stricture and no stones in the CBD, stent was placed in the CBD -CEA normal, CA 27-29 normal, CA 19-9 high at 67 (nl <34) -Cytology saw moderate inflammation and reactive glandular atypia, no dysplasia or carcinoma seen -GI will plan follow-up and further work-up for biliary stricture -Lap buzz performed 07/10 -Discontinued Zosyn -Zofran PRN nausea control -Oxycodone-acetaminophen 5mg 1-2 tab PO PRN pain control Elevated D-dimer -COVID-19 negative -Chest CTA negative for clot -Likely acute phase reactant secondary to acute infection Possible UTI -Urine fairly dirty, though without symptoms of dysuria, frequency, hematuria -Cx showed 3+ organism all moderate counts, probable skin walker -UTI unlikely due to asymptomatic picture Back Pain -Chronic upper back pain bilaterally between her shoulders -Likely MSK in origin -May see improvement following cholecystectomy due to paralytic muscle relaxant used during surgery -If pain returns patient should establish care with a PCP for management Dispo: Med/Surg for pain control; Plan for discharge tomorrow FEN: normal diet, no IV fluids DVT: SCD, no pharmacologic prophylaxis unless stay becomes prolonged or pain restricts movement Code: Full Admission and Anticipated Discharge Date Admission Date: July 08, 2020 Supervising Attestation I personally examined the patient and verified all sánchez points of history and exam, discussed case, and agree with decision making with Sofie Garcia Still having some pain. Nervous about going home, ate well. Getting up and out of bed reasonably well. answered all questions to the best of my ability Vitals noted, in general she is awake and alert pleasant no distress. HEENT normocephalic atraumatic mucous membranes moist. Breathing unlabored no accessory muscle use good effort. Skin shows no rashes no pallor or icterus. cholecystitis and bile duct thickening -doing well, pain control, hopefully home tomorrow back pain -biomechanicalseems to be rhomboid related. Not present now. previously discussed stretches and posture, discussed topical diclofenac, discussed OMT if needed. doubt UTI - probably false (+) UA, off abx no clear need for pharmacologic DVT proph - ambulatory otherwise as above Subjective Niurka is feeling good today, she tolerated her breakfast and lunch well. She is having a bit more abdominal pain and achiness compared to yesterday, but feels that it is managed well with medication. She has no back pain today. We discussed that from a surgical and medical standpoint, she could be ready to go home. She would prefer to spend one more night in the hospital just due to her level of discomfort and pain. She feels safe at home and understands that she would go home with careful instructions and pain medication for home management. We discussed expectations for her pain and movement limitations during recovery at home. We also discussed how she could establish care with a resident physician at the [facility] to manage any unexpected changes in her condition. Review of Systems Review of Systems: All systems reviewed & are unremarkable except as noted in HPI & below Physical Exam Constitutional: WD/WN, vitals as above comfortable; no acute distress Respiratory: normal respiratory effort, lungs clear to auscultation Cardiovascular: Rate/Rhythm: regular rate and regular rhythm Heart Sounds: normal S1 and normal S2; no gallop, no murmur and no cardiac rub Gastrointestinal (Abdomen): Inspection/Auscultation: abdomen normal to inspection, normal bowel sounds and + abdominal surgical incision (skin at port sites is not erythematous, healing nicely); abdomen not distended Percussion/Palpation: + abdomen tender and abdomen soft Skin: no rashes, warm and dry Psychiatric: A+Ox3, euthymic affect Results & Data ([facility]) Vital Signs (Past 12 Hours) Vital Signs Temp Pulse Resp BP Pulse Ox 07/11/20 07:20 37.2 C 60 18 107/69 97 07/11/20 03:27 37.0 C 55 L 17 111/75 98
--- NOTE | 2020-07-11 16:14 | Progress Notes ---
DATE: 07/11/2020 ADDENDUM This is a supplement to the progress note on the patient by Bianca Metzger. I reviewed the chart and the patient's liver tests are significantly improved after placing a biliary stent. Her CEA and CA 27-29 were normal, but her CA 19-9 is elevated at 67 with normal being less than 34. Her brush cytology from her ERCP showed no malignant cells, but I am still concerned about the likelihood of a bile duct tumor. From GI standpoint since she has a stent in place, I think she no longer needs any antibiotics and we will arrange for her to be seen down at [place] to further evaluate the bile duct lesion seen on ERCP as an outpatient.
--- NOTE | 2020-07-11 20:13 | Billing Data ---
Date of Service July 11, 2020 Coding Level of Care Code 23294 Subseq Hosp Care Lvl 2
--- NOTE | 2020-07-12 08:32 | Surgery Progress Note ---
Date of Service July 12, 2020 Assessment & Plan (1) Choledocholithiasis with acute cholecystitis: POD#2 laparoscopic cholecystectomy Patient doing well. Abdominal exam benign, incisions c/d/i Tolerating a regular diet. Pain well controlled GI coordinating care with [facility] for repeat ERCP Okay for discharge to home from our standpoint Follow up with Dr. Kern within 2 weeks Admission and Anticipated Discharge Date Admission Date: July 08, 2020 Supervising Physician Co-Signing Physician Notes Patient seen and examined, agree with above. POD #2 laparoscopic cholecystectomy for acute cholecystitis, POD #3 ERCP for choledocholithiasis. Doing well, tolerating a diet. No new labs today. On exam afebrile stable vitals. Incisions with Dermabond, no evidence of infection. Discharged home, follow-up in 2 weeks, return precautions given, activity restrictions and wound care instructions reviewed. Follow-up with GI at [place] as scheduled. Subjective Patient offers no complaints this AM. Denies abdominal pain, nausea/vomiting. Is passing flatus. Tolerating a regular diet. Physical Exam Physical Exam: awake/alert Constitutional: well developed and well nourished; no acute distress Respiratory: normal respiratory effort Gastrointestinal (Abdomen): Inspection/Auscultation: + abdominal surgical incision (c/d/i with dermabond overtop, no signs of infection); abdomen not distended Percussion/Palpation: abdomen soft; abdomen nontender Results & Data ([facility]) Vital Signs (Past 12 Hours) Vital Signs Temp Pulse Resp BP Pulse Ox 07/12/20 07:11 36.9 C 66 16 105/66 97 07/11/20 22:39 36.9 C 69 18 103/68 96 PG Care Time/CCT Total # of Minutes Spent Total Time Spent with Patient: Total time spent is greater than 50% in coordination of care (as documented) at patient's floor/unit and/or counseling patient: Coding Level of Care Code None Diagnoses Choledocholithiasis with acute cholecystitis K80.42
--- NOTE | 2020-07-12 20:10 | Discharge Summary ---
Date of Service July 12, 2020 Admission HPI Per Admitting Provider For ERCP Principal Diagnosis Cholecystitis, bile duct stricture Discharge Exam General she is awake and alert pleasant no distress. HEENT normocephalic atraumatic mucous membranes moist. Breathing unlabored no accessory muscle use good effort. Skin shows no rashes no pallor or icterus. Neuro no focal deficits. Discharge Data Allergies Allergy/AdvReac Type Severity Reaction Status Date / Time No Known Allergies Allergy Unverified 07/08/20 16:31 Consultations 07/08/20 19:49 ED Decision to Admit Stat 07/08/20 21:49 Consult Gastroenterology Routine Consult General Surgery Routine Procedures Performed Operation Date: 07/09/20 11:45 Actual Procedures p Endoscopic Retrograde Cholangiopancreatogram; Biliary Stent Placement(Not Applicable) - Edward Sanchez Operation Date: 07/10/20 11:05 Actual Procedures p Laparoscopic Cholecystectomy(Not Applicable) - Jared Kern, DO, FACS Ordered Studies 07/08/20 16:38 CT abd pelvis IV con only Stat 07/08/20 18:20 CT angio chest PE protocol Stat 07/09/20 16:03 FL ERCP biliary ductal Routine 07/09/20 21:49 MR MRCP Routine Hospital Course (1) Choledocholithiasis with acute cholecystitis: Presented with transaminitis, elevated bilirubin, elevated alk phos. Initially appeared consistent with choledocholithiasis, ERCP found an indeter minate biliary stricture with no stones, stent was placed in the common bile duct and brushings were taken. Brushings did not show malignant cells, CEA was normal CA 27-29 was normal, CA 19-9 was high at 67. Cholecystectomy done 07/10 and showed acute and chronic cholecystitis with associated hemorrhage and cholelithiasis. -Patient showed improvement, was eating well, pain was reasonably well con trolled with pain medicine, and felt up to going home. Surgery did not feel that ongoing antibiotics were needed. Patient was stable for home. -As it relates to the biliary strictureshe will have a repeat ERCP with the daughter scope to hopefully be able to directly biopsy the area of concernGI will arrange this at [facility] for sometime in the near future. Stable for home, close PCP and GI follow-up. Surgery follow-up as well. Total Time Total Time Spent Total Time Spent (In Minutes): <30 Discharge Plan Discharge Items Patient Disposition: Home - Self-Care Reason For Visit: ACUTE CALCULUS CHOLECYSTITIS Discharge Diagnosis: acute cholecystitis Activity: Per Instructions section Lifting: No more than 10 pounds Bathing Comment: may shower; no soaking in tubs/pools Exercise/Sports: Wait until after follow-up appointment Driving/Machine Use: do not resume driving while taking narcotic for pain Non-emergency contact: Primary Care Provider Call non-emergency contact if: you have any medication questions, your symptoms worsen, your pain is not controlled, your pain is worsening, you have a fever, your temperature is above 101.5, your wound has increased redness, your wound has increased drainage and your wound pain has increased Follow-up/Referrals: Jared Kern DO, FACS [Physician] - 07/23/20 10:30 am (Please call to schedule follow up in clinic within 1-2 weeks) [facility] [Primary Care Provider] - Diet: Regular Addtl Attending Provider Instructions: You were admitted to the hospital for a gallbladder infection (acute cholecystitis). You underwent surgery to have your gallbladder removed. The procedure went very well. Since surgery, your pain has been controlled, and it is safe for you to return home. FOLLOW-UP APPOINTMENTS You have an appointment with your primary care physician, Dr. Lester, on July 17 at 4:10pm. The clinic is located at [address] [place] [address] in [place] (across the parking lot from [facility]). If you are unable to make the appointment, or have any questions, please call the clinic at [phone]. As previously discussed, we also recommend following up with [facility] to further evaluate a possible cause of your gallbladder blockage. Dr. Lester can help you schedule and coordinate this visit. MEDICINE You have been discharged with 10 tablets of a medication, percocet, that can be used for severe pain. Percocet is a combination of two medicines. Each tablet contains 5mg oxycodone and 325mg acetaminophen. You can 1 to 2 percocet tablets every 4 to 6 hours as needed for severe pain. Percocet can cause drowsiness or sleepiness, and so it is very important that you do not take it before driving or anything else that requires you to stay awake. Percocet can also cause mild nausea. If you experience side effects, call your primary care physician. If your pain is mild or moderate, you can take [id number]-[id number] pain medicine instead. For mild or moderate pain, you can take acetaminophen 650mg every four to six hours OR ibuprofen 600mg every four to six hours. Do NOT take percocet and tylenol within 4 to 6 hours of each other. Both of these medicines contain acetaminophen, and it is dangerous to take more than 4000mg of acetaminophen within 24 hours. ACTIVITY / DIET Please resume your previous activity and diet. You have no new activity or dietary restrictions as a result of this hospital stay. CONTACT YOUR PRIMARY CARE PROVIDER if you experience any of the following: -new or worsening abdominal pain -mild or moderate nausea or vomiting -fever or chills -diarrhea -inability to take medications or follow treatment plan CALL 911 OR GO TO THE EMERGENCY DEPARTMENT if you experience any of the following: -sudden chest pain, or chest pain that radiates (moves) to your jaw or arm -sudden or severe shortness of breath -sudden onset nausea, vomiting, lightheadedness Thank you for allowing us to participate in your care. Pending Studies at Discharge: No Stand-Alone Forms: [facility], Opioid Pain Management, Smoking Cessation Medications and DC Order Prescriptions: New oxycodone-acetaminophen [Percocet] 5-325 mg tablet 1 - 2 tab PO .q4-6h PRN (Reason: pain, for initial therapy, max 6 tabs per day) Qty: 10 RF: 0 No Action No Known Home Medications RF: 0 Discharge Orders: Discharge Order (Routine); Ordered 07/12/20 Ordered By: Dao Pitt/Other Patient Handouts: Healthy Eating on the Go Admission Data Admit Date/Time: 07/08/20 20:57 Attending Provider: Iggy Franco Admit Provider: Chester Melvin Primary Care Provider: [facility] Other Providers: Leslye Blanchard ; Julio Rodriguez ; Tan Jimenez Other Interventions: Discharge Summary Assessment (RN) Last Done: 07/12/20 12:47 Coding Level of Care Code D/C Day Management <30 mins Diagnoses Choledocholithiasis with acute cholecystitis K80.42
== END 2020-07-12 16:26 | disposition home or self-care (01) | DRG 419 ==
LOC: ED 13:53 → 3N 20:57 → SUATTDRO 20:57 → 3N 21:35